=== PATIENT | female | born 1950 | race African-American/Black ===

== ENCOUNTER 2018-02-01 13:58 | Emergency (ER) | payer OTHER ==
[2018-02-01 14:06] VITALS: TEMP 98.2; BMI 34.4
--- NOTE | 2018-02-01 15:17 | PDOC ---
History of Present Illness - General Chief Complaint: Edema Stated Complaint: RT foot SWELLING Time Seen by Provider: 02/01/18 15:07 - History of Present Illness Initial Comments: 02/01/18 17:37 The patient is a 67 year old female with a history of HTN, DM who presents for evaluation of right foot pain. The patient reports a 4 day history of gradually worsening right foot pain worse at the 1st metatarsal joint with associated swelling, redness, and warmth prompting her presentation to the ED for evaluation. She denies similar symptoms in the past and otherwise denies fevers, chills, SOB, chest pain, abdominal pain, nausea, vomiting, or changes with urination or bowel movements or leg swelling. Past History - Past Medical History Allergies/Adverse Reactions: Allergies Allergy/AdvReac Type Severity Reaction Status Date / Time morphine Allergy Unknown Verified 02/01/18 14:06 Morpholine Analogues Allergy Unknown Verified 02/01/18 14:06 Ranmwux-Ezy-Pri Reductase Allergy Verified 02/01/18 14:06 Inhibitor Home Medications: Ambulatory Orders Naproxen [Naprosyn -] 500 mg PO BID #20 tablet 02/01/18 Omeprazole 20 mg PO DAILY #20 tablet. 02/01/18 Cardiac Disorders: Yes (heart surgery) CVA: Yes (5 years ago) COPD: No Diabetes: Yes - Immunization History Immunization Up to Date: Yes - Suicide/Smoking/Psychosocial Hx Smoking History: Never smoked Have you smoked in the past 12 months: No Information on smoking cessation initiated: No Hx Alcohol Use: No Drug/Substance Use Hx: No Substance Use Type: None Review of Systems - Review of Systems Comments:: 02/01/18 17:39 Constitutional: No fevers, chills, fatigue, malaise HEENT: No Rhinorrhea, nasal congestion, visual changes Cardiovascular: No chest pain, syncope, palpitations, lightheadedness Respiratory: No Cough, SOB, Hemoptysis, Gastrointestinal: No Abdominal pain, Nausea, Vomiting, Constipation, Diarrhea, Melena Genitourinary: No Dysuria, Frequency, Urgency, Hesitancy, Hematuria, Flank pain Musculoskeletal: Right Foot Pain. No Myalgia, arthralgia Skin: Erythema, Swelling, Warmth to right foot. No rashes, itching, bruising, pallor Neurologic: No Headache, Dizziness, Numbness, Weakness, or Tingling Psychiatric: No Hallucinations. No SI or HI *Physical Exam - Vital Signs Last Vital Signs Temp Pulse Resp BP Pulse Ox 98.2 F 85 16 153/95 100 02/01/18 14:04 02/01/18 14:04 02/01/18 14:04 02/01/18 14:04 02/01/18 14:04 - Physical Exam Comments: 02/01/18 17:40 General Appearance: Nourished. No Apparent Distress HEENT: EOMI, DANA. No Pharyngeal Erythema, Tonsillar Exudate, Tonsillar Erythema Neck: No Cervical Lymphadenopathy Respiratory/Chest: Lungs Clear, Normal Breath Sounds. No Crackles, Rales, Rhonchi, Wheezing Cardiovascular: Regular Rhythm, Regular Rate. No Murmur, Gallops, Rubs Gastrointestinal/Abdominal: Normal Bowel Sounds, Soft. No Guarding, Rebound, Tenderness Musculoskeletal: No CVA Tenderness Extremity: Erythema, Edema and Warmth to the right 1st metatarsal with severe tenderness to palpation. Normal Capillary Refill Integumentary: Normal Color, Dry, Warm Neurologic: Fully Oriented, Alert, Normal Mood/Affect, Normal Response, ED Treatment Course - LABORATORY CBC & Chemistry Diagram: 02/01/18 16:41 02/01/18 16:41 Medical Decision Making - Medical Decision Making 02/01/18 17:41 The patient is a 67 year old female with a history of HTN, DM who presents for evaluation of right foot pain. Differential includes but is not limited to: Cellulities, Wound infection, Gout Flare, infectious, metabolic derangement. Given the patient's history and physical exam, it is likely her symptoms are due to a gout flare. We will obtain a cbc, cmp, uriac acid, tsh, esr, crp, and plain films to evaluate further. We will treat in the meantime with naproxen and continue to monitor and reassess. 02/01/18 17:55 CBC demonstrates an elevated wbc to 12. CMP is unremarkable. Uric acid is elevated to 7.6. The patient's symptoms are likely due to a gout flare. We are comfortable discharging the patient home at this time with primary care provider and rheumatology follow up. We discussed the results, plan, and return precautions with the patient who voiced understanding and is agreeable with the plan. *DC/Admit/Observation/Transfer Diagnosis at time of Disposition: Gout Qualifiers: Gout site: toe Gout etiology: unspecified cause Chronicity: acute Laterality: right Qualified Code(s): M10.9 - Gout, unspecified - Discharge Dispostion Disposition: HOME Condition at time of disposition: Good Admit: No - Prescriptions Prescriptions: Naproxen [Naprosyn -] 500 mg PO BID #20 tablet Omeprazole 20 mg PO DAILY #20 tablet.dr - Referrals Referrals: Kit Orozco [Primary Care Provider] - Donato Lyn MD [Staff Physician] - - Patient Instructions Printed Discharge Instructions: DI for Gout Additional Instructions: Please return to the ER if you experience concerning or worsening symptoms including worsening pain, pus drainage, fevers, chills, difficulty breathing, or vomiting. Your lab results were otherwise normal, but did show an elevated Uric Acid consistent with gout. Your symptoms are likely due to a gout flare. We have sent a prescription to your pharmacy for Naproxen 500mg twice a day as well as Omeprozole 20mg daily which will help with your symptoms. Please call to schedule a follow up appointment with your primary care provider as well as our broadband technician Dr. Gloria within 2-3 days to discuss your ER visit and further management of your symptoms. - Post Discharge Activity
[2018-02-01] MEDS ORDERED: IBUPROFEN 600 MG TABLET (FP) PO ONE ×2 (15:44→15:59)
[2018-02-01] MEDS ORDERED: PANTOPRAZOLE 20 MG TABLET (FP) PO ONE (16:34)
[2018-02-01] MEDS ORDERED: NAPROXEN 500 MG TABLET (FP) PO ONE (16:34)
[2018-02-01 16:56] LABS: BASO % 0.5 % (0-2.0); EOS % 1.8 % (0-4.5); HEMATOCRIT 38.6 % (32.4-45.2); HEMOGLOBIN 12.5 GM/dL (10.7-15.3); LYMPH % 24.3 % (8-40); MCH 25.3 pg (25.7-33.7); MCHC 32.3 g/dl (32.0-36.0); MEAN CELL VOLUME 78.4 fl (80-96); MEAN PLT VOLUME 7.8 fl (7.5-11.1); MONO % 5.5 % (3.8-10.2); NEUT % 67.9 % (42.8-82.8); PLATELET COUNT 335 K/MM3 (134-434); RBC 4.92 M/mm3 (3.60-5.2); RDW 14.8 % (11.6-15.6)
[2018-02-01 17:22] LABS: URIC ACID 7.6 mg/dL (2.6-7.2)
[2018-02-01 17:23] LABS: ALBUMIN 3.8 g/dl (3.4-5.0); ALK PHOS 81 U/L (45-117); ANION GAP 5 (8-16); BILIRUBIN,TOTAL 0.3 mg/dL (0.2-1.0); BLOOD UREA NITROGEN 17 mg/dL (7-18); CALCIUM 9.1 mg/dL (8.5-10.1); CHLORIDE 107 mmol/L (98-107); CO2 31 mmol/L (21-32); CREATININE 0.9 mg/dL (0.55-1.02); GLUCOSE,RANDOM 102 mg/dL (74-106); POTASSIUM 3.5 mmol/L (3.5-5.1); SGOT/AST 11 U/L (15-37); SGPT/ALT 15 U/L (12-78); SODIUM 143 mmol/L (136-145); TOT PROT 7.2 g/dl (6.4-8.2)
[2018-02-01 18:13] VITALS: BP 148/77; PULSE 80
--- NOTE | 2018-02-01 18:17 | PDOC ---
Attending Attestation - Resident Resident Name: Merritt Coffman - ED Attending Attestation I have performed the following: I have examined & evaluated the patient, The case was reviewed & discussed with the resident, I agree w/resident's findings & plan, Exceptions are as noted - Medical Decision Making 02/01/18 18:00 67yo F hx DM, HTN p/w acute R first metatarsal pain consistent with likely gout. Pt with no fevers/chills. Able to bear weight. Labs with leukocytosis to 12, uric acid mildly elevated. ESR pending but pt feels better with naproxen, requests DC home. XR negative. Pt prescribed naproxen and omeprazole, and referred to rheum. Return precautions given. I discussed the physical exam findings, ancillary test results and final diagnoses with the patient. I answered all of the patient's questions. The patient was satisfied with the care received and felt comfortable with the discharge plan and treatment plan. The patient will call their primary care physician within 24 hours to arrange follow-up and will return to the Emergency Department with any new, persistent or worsening symptoms. <Javier Ochoa - Last Filed: 02/01/18 18:19> - HPI HPI: 02/01/18 18:22 The patient is a 67 year old female with history of hypertension, DM, who presents to the ED complaining of approximately 4 days of right first toe joint pain, swelling, and erythema. She states this has never happened in the past. No history of gout diagnosis. She denies fever or chills. She denies nausea, vomiting, or diarrhea. She denies chest pain or shortness of breath. SHe is able to bear weight on her food. - Physicial Exam PE: 02/01/18 18:22 GENERAL: Awake, alert, and fully oriented, in no acute distress HEAD: No signs of trauma EYES: PERRLA, EOMI, sclera anicteric, conjunctiva clear ENT: Auricles normal inspection, hearing grossly normal, nares patent, oropharynx clear without exudates. Moist mucosa NECK: Normal ROM, supple, no lymphadenopathy, JVD, or masses LUNGS: Breath sounds equal, clear to auscultation bilaterally. No wheezes, and no crackles HEART: Regular rate and rhythm, normal S1 and S2, no murmurs, rubs or gallops ABDOMEN: Soft, nontender, normoactive bowel sounds. No guarding, no rebound. No masses EXTREMITIES: RLE: +Edema, tenderness to the R first metatarsal no significant warmth or erythema. able to range toe. No open wounds. All other extremities: Normal range of motion, no edema. No clubbing or cyanosis. No cords, erythema, or tenderness BACK: No midline spinal tenderness in cervical/thoracic/lumbar region NEUROLOGICAL: Normal speech, cranial nerves intact, negative pronator drift, 5/ 5 strength in all 4 extremities, normal sensation to light touch in all 4 extremities, normal cerebellar exam, normal gait, normal reflexes and tone SKIN: Warm, Dry, normal turgor, no rashes or lesions noted. Documentation prepared by Maribel Barakat, acting as hospital medical biller for Javier Ochoa MD. <Maribel Barakat - Last Filed: 02/01/18 18:23>
== END 2018-02-01 18:10 | disposition home or self-care (01) ==
LOC: JER 13:58
DX: M10.9 Gout, unspecified (principal); I10 Essential (primary) hypertension; E11.9 Type 2 diabetes mellitus without complications
CPT/HCPCS: 36415; 73630-TC-RT-FY; 80053; 84443; 84550; 85025; 85651; 86140; 99282-25

== ENCOUNTER 2018-03-16 18:44 | Emergency (ER) | payer OTHER ==
[2018-03-16] MEDS ORDERED: ASPIRIN 81 MG CHEWABLE TABLETS PO ONE ×2 (18:51→20:22)
--- NOTE | 2018-03-16 18:55 | PDOC ---
Rapid Medical Evaluation Time Seen by Provider: 03/16/18 18:49 Medical Evaluation: Allergies Allergy/AdvReac Type Severity Reaction Status Date / Time morphine Allergy Unknown Verified 02/01/18 14:06 Morpholine Analogues Allergy Unknown Verified 02/01/18 14:06 Addsoia-Itd-Lwi Reductase Allergy Verified 02/01/18 14:06 Inhibitor I have performed a brief in-person evaluation of this patient. The patient presents with a chief complaint of: intermittent chest pain x several months. SOB today. Symptoms worsening. Patient was supposed to have cath 6 months ago but never went Pertinent physical exam findings: SOB, O2 sat at 93% on RA. Faint breath sounds I have ordered the following: labs, EKG, CXR, O2 via NC The patient will proceed to the ED for further evaluation. Discharge Disposition - Diagnosis Chest pain - Referrals - Patient Instructions - Post Discharge Activity
[2018-03-16 18:57] VITALS: BP 185/100; PULSE 95; TEMP 98.6; BMI 34.7
--- NOTE | 2018-03-16 19:29 | PDOC ---
History of Present Illness - History of Present Illness Initial Comments: 03/16/18 19:54 Ms. Lugo is a 67 yo female w/ pmh of HTN, DM, and prior heart stent, previously told approximately 6 months ago that she needs a catheterization, who presents complaining of a 1 month history of dyspnea on exertion with additional 1 week history of left chest pain/tightness. She further reports that she has had to sleep propped up on pillows for the last week. The patient denies headache and dizziness. Denies fever, chills, nausea, vomit, diarrhea and constipation. Denies dysuria, frequency, urgency and hematuria. Allergies: Morphine, statins <Abdirashid Crane - Last Filed: 03/16/18 20:15> <Deborah Parsons - Last Filed: 03/16/18 20:49> - General Chief Complaint: Chest Pain Stated Complaint: CHEST PAIN Time Seen by Provider: 03/16/18 18:49 Past History - Past Medical History Cardiac Disorders: Yes (NM) CVA: Yes (5 years ago) COPD: No DVT: No Diabetes: Yes HTN: Yes Hypercholesterolemia: Yes - Surgical History Cardiac Surgery: Yes (CABG, CARD STENTS) Cholecystectomy: Yes - Immunization History Immunization Up to Date: Yes - Suicide/Smoking/Psychosocial Hx Smoking History: Never smoked Have you smoked in the past 12 months: No Information on smoking cessation initiated: No Hx Alcohol Use: No Drug/Substance Use Hx: No Substance Use Type: None <Abdirashid Crane - Last Filed: 03/16/18 20:15> <Deborah Parsons - Last Filed: 03/16/18 20:49> - Past Medical History Allergies/Adverse Reactions: Allergies Allergy/AdvReac Type Severity Reaction Status Date / Time morphine Allergy Unknown Verified 03/16/18 18:49 Morpholine Analogues Allergy Unknown Verified 03/16/18 18:49 Wjifyup-Hno-Rma Reductase Allergy Verified 03/16/18 18:49 Inhibitor Home Medications: Ambulatory Orders Naproxen [Naprosyn -] 500 mg PO BID #20 tablet 02/01/18 Omeprazole 20 mg PO DAILY #20 tablet. 02/01/18 Review of Systems - Review of Systems Comments:: 03/16/18 19:59 GENERAL/CONSTITUTIONAL: No fever or chills. No weakness. HEAD, EYES, EARS, NOSE AND THROAT: No change in vision. No ear pain or discharge. No sore throat. CARDIOVASCULAR: +Chest pain / dyspnea on exertion as described. RESPIRATORY: No cough, wheezing, or hemoptysis. GASTROINTESTINAL: No nausea, vomiting, diarrhea or constipation. GENITOURINARY: No dysuria, frequency, or change in urination. MUSCULOSKELETAL: No joint or muscle swelling or pain. No neck or back pain. SKIN: No rash NEUROLOGIC: No headache, vertigo, loss of consciousness, or change in strength/ sensation. ENDOCRINE: No increased thirst. No abnormal weight change HEMATOLOGIC/LYMPHATIC: No anemia, easy bleeding, or history of blood clots. ALLERGIC/IMMUNOLOGIC: No hives or skin allergy. <Abdirashid Crane - Last Filed: 03/16/18 20:15> *Physical Exam - Vital Signs Last Vital Signs Temp Pulse Resp BP Pulse Ox 98.6 F 95 H 22 185/100 95 03/16/18 18:49 03/16/18 18:49 03/16/18 18:49 03/16/18 18:49 03/16/18 18:49 - Physical Exam Comments: 03/16/18 19:59 GENERAL: Awake, alert, and fully oriented, in no acute distress HEAD: No signs of trauma, normocephalic, atraumatic EYES: PERRLA, EOMI, sclera anicteric, conjunctiva clear ENT: Auricles normal inspection, hearing grossly normal, nares patent, oropharynx clear without exudates. Moist mucosa NECK: Normal ROM, supple, no lymphadenopathy, JVD, or masses LUNGS: No distress, speaks full sentences, clear to auscultation bilaterally HEART: Regular rate and rhythm, normal S1 and S2, no murmurs, rubs or gallops, peripheral pulses normal and equal bilaterally. ABDOMEN: Soft, nontender, normoactive bowel sounds. No guarding, no rebound. No masses EXTREMITIES: Normal inspection, Normal range of motion, no edema. No clubbing or cyanosis. NEUROLOGICAL: Cranial nerves II through XII grossly intact. Normal speech, normal gait, no focal sensorimotor deficits SKIN: Warm, Dry, normal turgor, no rashes or lesions noted. <Abdirashid Crane - Last Filed: 03/16/18 20:15> - Vital Signs Last Vital Signs Temp Pulse Resp BP Pulse Ox 98.6 F 95 H 22 185/100 95 03/16/18 18:49 03/16/18 18:49 03/16/18 18:49 03/16/18 18:49 03/16/18 18:49 <Deborah Parsons - Last Filed: 03/16/18 20:49> ED Treatment Course - LABORATORY CBC & Chemistry Diagram: 03/16/18 19:15 03/16/18 19:15 <Abdirashid Crane - Last Filed: 03/16/18 20:15> - LABORATORY CBC & Chemistry Diagram: 03/16/18 19:15 03/16/18 19:15 - ADDITIONAL ORDERS Additional order review: Laboratory Results 03/16/18 03/16/18 03/16/18 19:15 19:15 19:15 PT with INR INR Sodium 143 Potassium 4.8 Chloride 106 Carbon Dioxide 26 Anion Gap 11 BUN 14 Creatinine 1.0 Creat Clearance w eGFR 54.97 Random Glucose 101 Calcium 9.0 Magnesium 2.1 Total Bilirubin 0.3 AST 41 H ALT 33 Alkaline Phosphatase 91 Creatine Kinase 176 Creatine Kinase Index 2.0 CK-MB (CK-2) 3.601 H Troponin I 25.10 H* B-Natriuretic Peptide 3354.50 H Total Protein 7.7 Albumin 3.8 Blood Type B POSITIVE Antibody Screen Negative 03/16/18 19:15 PT with INR 12.10 INR 1.07 Sodium Potassium Chloride Carbon Dioxide Anion Gap BUN Creatinine Creat Clearance w eGFR Random Glucose Calcium Magnesium Total Bilirubin AST ALT Alkaline Phosphatase Creatine Kinase Creatine Kinase Index CK-MB (CK-2) Troponin I B-Natriuretic Peptide Total Protein Albumin Blood Type Antibody Screen 03/16/18 19:15 RBC 5.03 MCV 78.9 L MCHC 31.8 L RDW 14.8 MPV 8.5 Neutrophils % 56.8 Lymphocytes % 31.3 D Monocytes % 7.8 Eosinophils % 3.2 Basophils % 0.9 - Medications Given in the ED: ED Medications Discontinued Medications Generic Name Dose Route Start Last Admin Trade Name Freq PRN Reason Stop Dose Admin Aspirin 162 mg 03/16/18 18:51 03/16/18 20:06 Asa - PO 03/16/18 18:52 162 mg ONCE ONE Administration <Deborah Parsons - Last Filed: 03/16/18 20:49> Medical Decision Making - Medical Decision Making 03/16/18 20:15 Ms. Lugo is a 67 yo female w/ pmh as described who presents for evaluation of worsening dyspnea on exertion and left sided chest pain. Troponin noted to be elevated to 25.10. Cardiology consulted who believe patient should be transferred to cath capable facility. [facility] contacted. <Abdirashid Crane - Last Filed: 03/16/18 20:15> - Critical Care Time Total Critical Care Time (minutes): 45 Critical Care Statement: The care of this patient involved high complexity decision making to prevent further life threatening deterioration of the patient 's condition and/or to evaluate & treat vital organ system(s) failure or risk of failure. <Deborah Parsons - Last Filed: 03/16/18 20:49> *DC/Admit/Observation/Transfer <Abdirashid Crane - Last Filed: 03/16/18 20:15> <Deborah Parsons - Last Filed: 03/16/18 20:49> Diagnosis at time of Disposition: Chest pain - Referrals Referrals: Kit Orozco [Primary Care Provider] - - Patient Instructions - Post Discharge Activity
[2018-03-16 19:34] LABS: BASO % 0.9 % (0-2.0); EOS % 3.2 % (0-4.5); HEMATOCRIT 39.7 % (32.4-45.2); HEMOGLOBIN 12.6 GM/dL (10.7-15.3); LYMPH % 31.3 % (8-40); MCH 25.1 pg (25.7-33.7); MCHC 31.8 g/dl (32.0-36.0); MEAN CELL VOLUME 78.9 fl (80-96); MEAN PLT VOLUME 8.5 fl (7.5-11.1); MONO % 7.8 % (3.8-10.2); NEUT % 56.8 % (42.8-82.8); PLATELET COUNT 324 K/MM3 (134-434); RBC 5.03 M/mm3 (3.60-5.2); RDW 14.8 % (11.6-15.6)
--- NOTE | 2018-03-16 19:37 | PDOC ---
Attending Attestation - HPI HPI: 03/16/18 19:40 The patient is a 67 year old female, with a significant PMH of diabetes mellitus , hypertension, CVA, who presents to the emergency department with intermittent chest pain and shortness of breath. The patient states she has had intermittent chest pain for the past couple of months which has worsened in the past few days with associated shortness of breath. The patient also endorses nausea without vomiting and dyspnea on exertion. The patient reports she was supposed to have a cardiac catheter placed 6 months ago but did not go for the procedure. The patient states she took 81 mg of aspirin earlier today which she takes everyday. The patient denies diaphoresis, headache and dizziness. Denies fever, chills, vomit, diarrhea and constipation. Denies dysuria, frequency, urgency and hematuria. Allergies: morphine, morpholine analogues, [id number] reductase Inhibitor PCP: Dr. Kit Orozco Documentation prepared by Junito Islas, acting as medical device for Deborah Parsons MD. <Junito Islas - Last Filed: 03/16/18 19:40> - Resident Resident Name: Abdirashid Crane - ED Attending Attestation I have performed the following: I have examined & evaluated the patient, The case was reviewed & discussed with the resident, I agree w/resident's findings & plan, Exceptions are as noted - Physicial Exam PE: GENERAL: Awake, alert, and fully oriented, in no acute distress HEAD: No signs of trauma EYES: PERRLA, EOMI, sclera anicteric, conjunctiva clear ENT: Auricles normal inspection, hearing grossly normal, nares patent, oropharynx clear without exudates. Moist mucosa NECK: Normal ROM, supple, no lymphadenopathy, JVD, or masses LUNGS: Breath sounds equal, clear to auscultation bilaterally. No wheezes, and no crackles HEART: Regular rate and rhythm, normal S1 and S2, no murmurs, rubs or gallops ABDOMEN: Soft, nontender, normoactive bowel sounds. No guarding, no rebound. No masses EXTREMITIES: Normal range of motion, no edema. No clubbing or cyanosis. No cords, erythema, or tenderness NEUROLOGICAL: Cranial nerves II through XII grossly intact. Normal speech, normal gait. Motor and sensation intact. SKIN: Warm, Dry, normal turgor, no rashes or lesions noted. - Medical Decision Making 03/16/18 19:36 Pt evaluated in main ED immediately after triage EKG was brought to me. Patient with history of CAD, needed a cath 6 months ago but did not follow up to get it. She presents with cp, SOB. EKG findings are concerning for acute [place]. Awaiting cardio callback. 03/16/18 20:22 D/w [facility] cardiology, recommended heparin bolus, plavix. Accepted transfer. <Deborah Parsons - Last Filed: 03/16/18 20:22> Heart Score/ECG Review - ECG Impressions Comment:: EKG read 18:53- NSR 91 bpm, +ST depressions lateral and inferior leads, +ST elevations aVR and V1 <Deborah Parsons - Last Filed: 03/16/18 20:22>
[2018-03-16 19:45] LABS: INR 1.07 (0.82-1.09); PROTHROMBIN TIME (PATIENT) 12.1 SEC (9.7-13.0)
[2018-03-16 19:59] LABS: ALBUMIN 3.8 g/dl (3.4-5.0); ANION GAP 11 (8-16); BILIRUBIN,TOTAL 0.3 mg/dL (0.2-1.0); BLOOD UREA NITROGEN 14 mg/dL (7-18); CHLORIDE 106 mmol/L (98-107); CO2 26 mmol/L (21-32); GLUCOSE,RANDOM 101 mg/dL (74-106); SGPT/ALT 33 U/L (12-78); SODIUM 143 mmol/L (136-145); TOT PROT 7.7 g/dl (6.4-8.2)
[2018-03-16 20:02] LABS: ALK PHOS 91 U/L (45-117)
[2018-03-16 20:10] LABS: MAGNESIUM 2.1 mg/dL (1.8-2.4); POTASSIUM 4.8 mmol/L (3.5-5.1); SGOT/AST 41 U/L (15-37)
[2018-03-16] MEDS ORDERED: ASPIRIN 81 MG CHEWABLE TABLETS ONE ×2 (20:10→20:43)
[2018-03-16] MEDS ORDERED: CLOPIDOGREL BISULFATE 300 MG TABLET PO ONE (20:22)
[2018-03-16] MEDS ORDERED: HEPARIN NA (PORCINE) 5,000 UNITS/ML 1ML VIAL IVPUSH PRN (20:22)
[2018-03-16] MEDS ORDERED: CLOPIDOGREL BISULFATE 300 MG TABLET ONE (20:44)
[2018-03-16] MEDS ORDERED: HEPARIN NA (PORCINE) 5,000 UNITS/ML 1ML VIAL ONE (20:44)
--- NOTE | 2018-03-17 10:13 | EKG ---
Test Reason : Blood Pressure : / mmHG Vent. Rate : 091 BPM Atrial Rate : 091 BPM P-R Int : 174 ms QRS Dur : 082 ms QT Int : 380 ms P-R-T Axes : 052 -24 176 degrees QTc Int : 467 ms NORMAL SINUS RHYTHM POSSIBLE ANTERIOR INFARCT , AGE UNDETERMINED MARKED ST ABNORMALITY, POSSIBLE LATERAL SUBENDOCARDIAL INJURY ABNORMAL ECG Confirmed by JAYCEE CEDENO MD ([id number]) on 03/17/2018 10:13:49 AM Referred By: Confirmed By:JAYCEE CEDENO MD
== END 2018-03-16 21:09 | disposition short-term general hospital (02) ==
LOC: JER 18:44
PROC: 3E033GC Introduction of Other Therapeutic Substance into Peripheral Vein, Percutaneous Approach (ICD-10-PCS; principal; 2018-03-16)
DX: R07.9 Chest pain, unspecified (principal); E11.9 Type 2 diabetes mellitus without complications; Z86.73 Personal history of transient ischemic attack (TIA), and cerebral infarction without residual deficits; I25.2 Old myocardial infarction; E78.00 Pure hypercholesterolemia, unspecified; Z95.1 Presence of aortocoronary bypass graft; Z95.5 Presence of coronary angioplasty implant and graft
CPT/HCPCS: 36415; 80053; 82550; 82553; 83735; 83880; 84484; 85025; 85610; 86850; 86900; 86901; 93005; 93010; 99283-25; J1644

== ENCOUNTER 2020-12-22 10:45 | Inpatient (IN) | payer OTHER ==
[2020-12-22] MEDS ORDERED: ALBUTEROL SO4 2.5/IPRATROPIUM 0.5 INH SOL 3 ML VIAL.NEB. NEB ONE ×2 (11:11→13:10)
[2020-12-22 12:03] LABS: VENOUS BASE EXCESS -7.1 mmol/L (-2-2); VENOUS O2 SATURATION 89.7 % (70-80); VENOUS PCO2 43.4 mmHg (38-52); VENOUS PH 7.27 (7.310-7.410)
[2020-12-22 12:07] LABS: BASO % 0.5 % (0-2.0); EOS % 1.1 % (0-4.5); HEMATOCRIT 35.3 % (32.4-45.2); HEMOGLOBIN 11.2 GM/dL (10.7-15.3); LYMPH % 14.8 % (8-40); MCH 25.3 pg (25.7-33.7); MCHC 31.6 g/dl (32.0-36.0); MEAN CELL VOLUME 80.1 fl (80-96); MONO % 8.1 % (3.8-10.2); NEUT % 75.5 % (42.8-82.8); PLATELET COUNT 311 K/MM3 (134-434); RDW 17.4 % (11.6-15.6); WHITE BLOOD COUNT 10.9 K/mm3 (4.0-10.0)
[2020-12-22 12:12] LABS: INR 1.65 (0.83-1.09); PROTHROMBIN TIME (PATIENT) 19.7 SEC (9.7-13.0)
[2020-12-22 12:14] LABS: ACTIVATED PTT 33.7 SECONDS (25.2-36.5); URINE APPEARANCE Clear; URINE BILIRUBIN 1+ (NEGATIVE); URINE COLOR Yellow; URINE GLUCOSE (UA) Negative (NEGATIVE); URINE KETONE Negative (NEGATIVE); URINE LEUK ESTERASE Negative (NEGATIVE); URINE NITRITE Negative (NEGATIVE); URINE PROTEIN 3+ (NEGATIVE); URINE UROBILINOGEN 0.2 mg/dL (0.2-1.0)
[2020-12-22 12:24] LABS: POTASSIUM 3.8 mmol/L (3.5-5.1)
[2020-12-22 12:26] LABS: ALBUMIN 3.4 g/dl (3.4-5.0); BLOOD UREA NITROGEN 11.3 mg/dL (7-18); MAGNESIUM 1.7 mg/dL (1.8-2.4)
[2020-12-22 12:29] LABS: CREATININE 0.9 mg/dL (0.55-1.3); PHOSPHOROUS 4.3 mg/dL (2.5-4.9)
[2020-12-22 12:31] LABS: BILIRUBIN,TOTAL 0.5 mg/dL (0.2-1); TOT PROT 6.8 g/dl (6.4-8.2)
[2020-12-22 12:35] LABS: N-TERMINAL BNP 17756.2 pg/ml (5-125)
[2020-12-22 12:36] LABS: URINE RBC 11.3 /uL (0-23.9); URINE WBC 39.3 /uL (0-25.8)
[2020-12-22 12:37] LABS: CALCIUM 9.1 mg/dL (8.5-10.1); EPI CELLS 79.8 /uL (0-25.1); HYALINE CASTS 6.93 /uL (0-3.1); URINE BACTERIA 768.5 /uL (0-1359)
[2020-12-22] MEDS ORDERED: FUROSEMIDE 40 MG/4 ML INJECTABLE VIAL IVPUSH ONE (17:05)
[2020-12-22] MEDS ORDERED: FUROSEMIDE 40 MG/4 ML INJECTABLE VIAL ONE (17:16)
[2020-12-22] MEDS ORDERED: ASPIRIN 81 MG CHEWABLE TABLETS ONE (18:48)
[2020-12-22] MEDS: ASPIRIN 81 MG CHEWABLE TABLETS PO SCH (18:50)
[2020-12-22] MEDS: INSULIN SLIDING SCALE (NOVOLOG) 1 VIAL SQ SCH (21:53)
[2020-12-23] MEDS ORDERED: ALBUTEROL SO4 2.5/IPRATROPIUM 0.5 INH SOL 3 ML VIAL.NEB. NEB ONE (02:15)
[2020-12-23 02:21] VITALS: BMI 35.7
[2020-12-23] MEDS: INSULIN SLIDING SCALE (NOVOLOG) 1 VIAL SQ SCH ×4 (06:30→21:04)
[2020-12-23 07:30] LABS: BASO % 0.7 % (0-2.0); EOS % 1.9 % (0-4.5); HEMATOCRIT 33.5 % (32.4-45.2); HEMOGLOBIN 10.6 GM/dL (10.7-15.3); MCH 25.2 pg (25.7-33.7); MCHC 31.6 g/dl (32.0-36.0); MONO % 10.8 % (3.8-10.2); NEUT % 66.6 % (42.8-82.8); PLATELET COUNT 250 K/MM3 (134-434); RBC 4.19 M/mm3 (3.60-5.2); RDW 17.2 % (11.6-15.6)
[2020-12-23 07:56] LABS: POTASSIUM 3.3 mmol/L (3.5-5.1)
[2020-12-23 08:01] LABS: CALCIUM 8.6 mg/dL (8.5-10.1)
[2020-12-23 08:02] LABS: BLOOD UREA NITROGEN 10.8 mg/dL (7-18); MAGNESIUM 1.8 mg/dL (1.8-2.4)
[2020-12-23 08:04] LABS: CREATININE 0.9 mg/dL (0.55-1.3)
[2020-12-23 08:05] LABS: PHOSPHOROUS 5.1 mg/dL (2.5-4.9)
[2020-12-23 08:06] LABS: BILIRUBIN,TOTAL 0.5 mg/dL (0.2-1); TOT PROT 5.9 g/dl (6.4-8.2)
[2020-12-23] MEDS ORDERED: ENOXAPARIN NA (PORCINE) 40 MG/0.4 ML DISP.SYRIN SQ SCH (10:00)
[2020-12-23] MEDS: PANTOPRAZOLE 20 MG TABLET PO SCH (10:07)
[2020-12-23] MEDS: FUROSEMIDE 40 MG/4 ML INJECTABLE VIAL IVPUSH SCH (10:07)
[2020-12-23] MEDS: ASPIRIN 81 MG CHEWABLE TABLETS PO SCH (10:09)
[2020-12-23] MEDS ORDERED: POTASSIUM CHLORIDE TABS 20 MEQ TABLET.ER (FP) PO ONE (10:21)
[2020-12-23] MEDS ORDERED: PT OWN MED DRAWER 7, Y5N ONE (12:01)
[2020-12-23] MEDS ORDERED: ALBUTEROL SO4 HFA INHALER IH PRN (19:51)
[2020-12-24] MEDS: ALBUTEROL SO4 0.083% IH SOL 2.5 MG/3 ML VIAL.NEB. NEB PRN ×2 (02:12→23:07)
[2020-12-24] MEDS ORDERED: ACETAMINOPHEN 325 MG TABLET (FP) PO PRN (02:27)
[2020-12-24] MEDS ORDERED: FUROSEMIDE 40 MG/4 ML INJECTABLE VIAL IVPUSH ONE (03:05)
[2020-12-24] MEDS ORDERED: FUROSEMIDE 40 MG/4 ML INJECTABLE VIAL ONE (03:10)
[2020-12-24] MEDS: INSULIN SLIDING SCALE (NOVOLOG) 1 VIAL SQ SCH ×4 (06:34→21:21)
[2020-12-24] MEDS: SACUBITRIL/VALSARTAN 24 MG-26 MG TABLET PO SCH ×2 (06:34→21:17)
[2020-12-24 08:13] LABS: BASO % 0.7 % (0-2.0); EOS % 2.9 % (0-4.5); HEMATOCRIT 33.9 % (32.4-45.2); HEMOGLOBIN 10.9 GM/dL (10.7-15.3); LYMPH % 13.4 % (8-40); MCH 25.4 pg (25.7-33.7); MCHC 32.1 g/dl (32.0-36.0); MEAN CELL VOLUME 79.3 fl (80-96); MEAN PLT VOLUME 8.7 fl (7.5-11.1); MONO % 9.1 % (3.8-10.2); NEUT % 73.9 % (42.8-82.8); PLATELET COUNT 288 K/MM3 (134-434); RBC 4.28 M/mm3 (3.60-5.2); RDW 16.9 % (11.6-15.6); WHITE BLOOD COUNT 10.2 K/mm3 (4.0-10.0)
[2020-12-24 08:48] LABS: POTASSIUM 3.2 mmol/L (3.5-5.1)
[2020-12-24 08:51] LABS: CALCIUM 8.7 mg/dL (8.5-10.1)
[2020-12-24 08:52] LABS: BLOOD UREA NITROGEN 9.5 mg/dL (7-18)
[2020-12-24 08:54] LABS: CREATININE 0.9 mg/dL (0.55-1.3)
[2020-12-24] MEDS: FUROSEMIDE 40 MG/4 ML INJECTABLE VIAL IVPUSH SCH (10:06)
[2020-12-24] MEDS: CARVEDILOL 12.5 MG TABLET (FP) PO SCH ×2 (10:07→21:17)
[2020-12-24] MEDS: ASPIRIN 81 MG CHEWABLE TABLETS PO SCH (10:07)
[2020-12-24] MEDS: PANTOPRAZOLE 40 MG TABLET PO SCH (10:07)
[2020-12-24] MEDS: PANTOPRAZOLE 20 MG TABLET PO SCH (10:07)
[2020-12-24] MEDS: APIXABAN 5 MG TABLET PO SCH ×2 (10:07→21:17)
[2020-12-24] MEDS: CLOPIDOGREL BISULFATE 75 MG TABLET (FP) PO SCH (10:07)
[2020-12-24] MEDS: POTASSIUM CHLORIDE TABS 20 MEQ TABLET.ER (FP) PO SCH (11:27)
[2020-12-25] MEDS: INSULIN SLIDING SCALE (NOVOLOG) 1 VIAL SQ SCH ×4 (06:18→21:23)
[2020-12-25 08:24] LABS: CALCIUM 8.4 mg/dL (8.5-10.1); POTASSIUM 3.4 mmol/L (3.5-5.1)
[2020-12-25 08:26] LABS: BLOOD UREA NITROGEN 10.2 mg/dL (7-18)
[2020-12-25 08:28] LABS: CREATININE 0.8 mg/dL (0.55-1.3)
[2020-12-25] MEDS ORDERED: POTASSIUM CHLORIDE TABS 20 MEQ TABLET.ER (FP) PO ONE (09:24)
[2020-12-25] MEDS: FUROSEMIDE 40 MG/4 ML INJECTABLE VIAL IVPUSH SCH (10:26)
[2020-12-25] MEDS: PANTOPRAZOLE 40 MG TABLET PO SCH (10:29)
[2020-12-25] MEDS: CARVEDILOL 12.5 MG TABLET (FP) PO SCH ×2 (10:29→21:23)
[2020-12-25] MEDS: APIXABAN 5 MG TABLET PO SCH ×2 (10:29→21:23)
[2020-12-25] MEDS: ASPIRIN 81 MG CHEWABLE TABLETS PO SCH (10:29)
[2020-12-25] MEDS: SACUBITRIL/VALSARTAN 24 MG-26 MG TABLET PO SCH ×2 (10:30→21:23)
[2020-12-25] MEDS: CLOPIDOGREL BISULFATE 75 MG TABLET (FP) PO SCH (10:30)
[2020-12-25 13:00] LABS: MAGNESIUM 1.6 mg/dL (1.8-2.4)
[2020-12-25] MEDS: POTASSIUM CHLORIDE TABS 20 MEQ TABLET.ER (FP) PO SCH (15:01)
[2020-12-25] MEDS ORDERED: MAGNESIUM SULF 50% (8.12 MEQ/2 ML-1 GM VIAL) IVPB ONE (18:04)
[2020-12-26] MEDS: ALBUTEROL SO4 0.083% IH SOL 2.5 MG/3 ML VIAL.NEB. NEB PRN (01:45)
[2020-12-26] MEDS: INSULIN SLIDING SCALE (NOVOLOG) 1 VIAL SQ SCH ×3 (06:09→16:37)
[2020-12-26 07:59] LABS: POTASSIUM 3.6 mmol/L (3.5-5.1)
[2020-12-26 08:03] LABS: BLOOD UREA NITROGEN 10.1 mg/dL (7-18)
[2020-12-26 08:04] LABS: CALCIUM 8.3 mg/dL (8.5-10.1)
[2020-12-26 08:07] LABS: CREATININE 0.9 mg/dL (0.55-1.3)
[2020-12-26] MEDS ORDERED: FUROSEMIDE 40 MG TABLET (FP) PO SCH (10:00)
[2020-12-26] MEDS ORDERED: REGADENOSON 0.4 MG/5 ML PRE-FILLED SYRINGE IVPUSH ONE (10:00)
[2020-12-26] MEDS ORDERED: MAGNESIUM OXIDE 400 MG TABLET (FP) PO SCH (10:00)
[2020-12-26] MEDS: CARVEDILOL 12.5 MG TABLET (FP) PO SCH (10:14)
[2020-12-26] MEDS: ASPIRIN 81 MG CHEWABLE TABLETS PO SCH (10:14)
[2020-12-26] MEDS: SACUBITRIL/VALSARTAN 24 MG-26 MG TABLET PO SCH (10:14)
[2020-12-26] MEDS: CLOPIDOGREL BISULFATE 75 MG TABLET (FP) PO SCH (10:14)
[2020-12-26] MEDS: PANTOPRAZOLE 40 MG TABLET PO SCH (10:15)
[2020-12-26] MEDS: POTASSIUM CHLORIDE TABS 20 MEQ TABLET.ER (FP) PO SCH (10:15)
[2020-12-26] MEDS: APIXABAN 5 MG TABLET PO SCH (10:15)
[2020-12-26 10:19] LABS: MAGNESIUM 2.1 mg/dL (1.8-2.4)
[2020-12-26 18:21] VITALS: BP 125/65; PULSE 80; TEMP 97.8
== END 2020-12-26 18:05 | disposition home or self-care (01) | DRG 292 ==
LOC: JER 10:45 → JERBED 17:13 → J4S 23:54
PROVIDERS: ADMIT Internal Medicine; ATTEND Family Medicine
DX: I11.0 Hypertensive heart disease with heart failure (principal); I69.354 Hemiplegia and hemiparesis following cerebral infarction affecting left non-dominant side; I25.10 Atherosclerotic heart disease of native coronary artery without angina pectoris; I50.23 Acute on chronic systolic (congestive) heart failure; J44.9 Chronic obstructive pulmonary disease, unspecified; E11.9 Type 2 diabetes mellitus without complications; I34.0 Nonrheumatic mitral (valve) insufficiency; E05.90 Thyrotoxicosis, unspecified without thyrotoxic crisis or storm; E66.9 Obesity, unspecified; Z68.35 Body mass index [BMI] 35.0-35.9, adult; E78.5 Hyperlipidemia, unspecified; E87.6 Hypokalemia; Z95.1 Presence of aortocoronary bypass graft; Z95.5 Presence of coronary angioplasty implant and graft
CPT/HCPCS: 36415; 71045-TC-FY; 71275-TC; 80048; 80053; 80061; 81003; 82550; 82607; 82728; 82803; 82962; 83036; 83540; 83550; 83605; 83721; 83735; 83880; 84100; 84443; 84484; 85025; 85610; 85730; 87086; 93005; 93010; 93306-TC; 93971-TC; 94640; 94761; 97116-GP; 97161-GP; 99285-25; C9803; Q9967; U0003

== ENCOUNTER 2021-04-07 10:09 | Inpatient (IN) | payer OTHER ==
[2021-04-07] MEDS ORDERED: FUROSEMIDE 40 MG/4 ML INJECTABLE VIAL IVPUSH ONE (11:49)
[2021-04-07 12:33] LABS: BASO % 0.5 % (0-2.0); EOS % 1.3 % (0-4.5); HEMATOCRIT 24.2 % (32.4-45.2); HEMOGLOBIN 7.4 GM/dL (10.7-15.3); LYMPH % 18.8 % (8-40); MCH 20.6 pg (25.7-33.7); MCHC 30.4 g/dl (32.0-36.0); MEAN CELL VOLUME 67.6 fl (80-96); MEAN PLT VOLUME 8.5 fl (7.5-11.1); MONO % 10.2 % (3.8-10.2); NEUT % 69.2 % (42.8-82.8); PLATELET COUNT 229 10^3/uL (134-434); RBC 3.58 M/mm3 (3.60-5.2); RDW 18.5 % (11.6-15.6); WHITE BLOOD COUNT 7.3 K/mm3 (4.0-10.0)
[2021-04-07 12:36] LABS: INR 3.31 (0.83-1.09); PROTHROMBIN TIME (PATIENT) 38.7 SEC (9.7-13.0)
[2021-04-07 12:38] LABS: ACTIVATED PTT 33.8 SECONDS (25.2-36.5)
[2021-04-07] MEDS ORDERED: FUROSEMIDE 40 MG/4 ML INJECTABLE VIAL ONE (12:48)
[2021-04-07 12:50] LABS: CALCIUM 8.3 mg/dL (8.5-10.1)
[2021-04-07 12:51] LABS: ALBUMIN 2.8 g/dl (3.4-5.0)
[2021-04-07 12:54] LABS: CREATININE 0.9 mg/dL (0.55-1.3)
[2021-04-07 12:55] LABS: BILIRUBIN,TOTAL 0.6 mg/dL (0.2-1)
[2021-04-07 12:56] LABS: TOT PROT 5.5 g/dl (6.4-8.2)
[2021-04-07 12:59] LABS: N-TERMINAL BNP 7548.3 pg/ml (5-125)
[2021-04-07 13:15] LABS: ANISOCYTOSIS 1+; MACROCYTOSIS 0; PLATELET ESTIMATE NORMAL
[2021-04-07] MEDS ORDERED: KCL 10 MEQ IVPB 10 MEQ/100 ML INFUS.BAG IVPB SCH (15:15)
[2021-04-07 16:00] LABS: BLOOD UREA NITROGEN 12.3 mg/dL (7-18); CALCIUM 8.3 mg/dL (8.5-10.1)
[2021-04-07 16:01] LABS: MAGNESIUM 1.9 mg/dL (1.8-2.4)
[2021-04-07 16:04] LABS: CREATININE 0.9 mg/dL (0.55-1.3)
[2021-04-07] MEDS ORDERED: CHLORHEXIDINE GLUCONATE 4% CLEANSER FOR DECOLONIZATION TP SCH (22:00)
[2021-04-07] MEDS ORDERED: MUPIROCIN 2% TOPICAL OINTMENT FOR DECOLONIZATION NS SCH (22:00)
[2021-04-07] MEDS: KCL 10 MEQ IVPB 10 MEQ/100 ML INFUS.BAG IVPB SCH ×2 (22:03→23:10)
[2021-04-07] MEDS: CARVEDILOL 12.5 MG TABLET (FP) PO SCH (22:24)
[2021-04-07] MEDS: SACUBITRIL/VALSARTAN 24 MG-26 MG TABLET PO SCH (22:31)
[2021-04-07] MEDS: PANTOPRAZOLE SODIUM 80 MG in SODIUM CHLORIDE 100 ML IVPB SCH (23:05)
[2021-04-08] MEDS: PANTOPRAZOLE SODIUM 80 MG in SODIUM CHLORIDE 100 ML IVPB SCH ×3 (01:58→21:42)
[2021-04-08 08:25] LABS: BASO % 0.4 % (0-2.0); EOS % 1.4 % (0-4.5); HEMATOCRIT 28.1 % (32.4-45.2); HEMOGLOBIN 8.6 GM/dL (10.7-15.3); LYMPH % 14.5 % (8-40); MCH 21.3 pg (25.7-33.7); MCHC 30.5 g/dl (32.0-36.0); MEAN CELL VOLUME 69.7 fl (80-96); MEAN PLT VOLUME 8.6 fl (7.5-11.1); MONO % 10.3 % (3.8-10.2); NEUT % 73.4 % (42.8-82.8); PLATELET COUNT 223 10^3/uL (134-434); RBC 4.03 M/mm3 (3.60-5.2); RDW 18.3 % (11.6-15.6); WHITE BLOOD COUNT 8.3 K/mm3 (4.0-10.0)
[2021-04-08 08:32] LABS: INR 2.15 (0.83-1.09); PROTHROMBIN TIME (PATIENT) 25.9 SEC (9.7-13.0)
[2021-04-08 08:53] LABS: ALBUMIN 2.9 g/dl (3.4-5.0); BLOOD UREA NITROGEN 13.1 mg/dL (7-18)
[2021-04-08 08:55] LABS: CREATININE 0.9 mg/dL (0.55-1.3)
[2021-04-08 08:56] LABS: BILIRUBIN,TOTAL 0.8 mg/dL (0.2-1); TOT PROT 5.6 g/dl (6.4-8.2)
[2021-04-08] MEDS: CARVEDILOL 12.5 MG TABLET (FP) PO SCH ×2 (10:37→21:42)
[2021-04-08] MEDS: SACUBITRIL/VALSARTAN 24 MG-26 MG TABLET PO SCH ×2 (10:37→21:42)
[2021-04-08] MEDS ORDERED: PT OWN MED DRAWER 7, Y5N ONE (11:49)
[2021-04-08] MEDS ORDERED: FUROSEMIDE 40 MG/4 ML INJECTABLE VIAL IVPUSH ONE (14:34)
[2021-04-08] MEDS ORDERED: IRON SUCROSE INJECTION 200 MG in SODIUM CHLORIDE 90 ML IVPB ONE (15:32)
[2021-04-08 17:28] LABS: BASO % 0.3 % (0-2.0); EOS % 1.5 % (0-4.5); HEMATOCRIT 30.3 % (32.4-45.2); HEMOGLOBIN 9.2 GM/dL (10.7-15.3); MCH 21.3 pg (25.7-33.7); MCHC 30.4 g/dl (32.0-36.0); MEAN CELL VOLUME 70.1 fl (80-96); MONO % 10.1 % (3.8-10.2); NEUT % 74.1 % (42.8-82.8); PLATELET COUNT 226 10^3/uL (134-434); RBC 4.33 M/mm3 (3.60-5.2); RDW 18.1 % (11.6-15.6); WHITE BLOOD COUNT 8.9 K/mm3 (4.0-10.0)
[2021-04-08 17:50] LABS: BLOOD UREA NITROGEN 12.1 mg/dL (7-18); CALCIUM 8.2 mg/dL (8.5-10.1)
[2021-04-08 17:54] LABS: CREATININE 0.9 mg/dL (0.55-1.3)
[2021-04-08] MEDS ORDERED: POTASSIUM CHLORIDE TABS 20 MEQ TABLET.ER (FP) PO ONE (19:09)
[2021-04-08] MEDS: SPIRONOLACTONE 25 MG TABLET PO SCH (21:42)
[2021-04-09 07:27] LABS: BASO % 0.3 % (0-2.0); EOS % 1.2 % (0-4.5); HEMATOCRIT 26.5 % (32.4-45.2); HEMOGLOBIN 8.1 GM/dL (10.7-15.3); LYMPH % 11.5 % (8-40); MCH 21.4 pg (25.7-33.7); MCHC 30.7 g/dl (32.0-36.0); MEAN CELL VOLUME 69.7 fl (80-96); MEAN PLT VOLUME 8.8 fl (7.5-11.1); MONO % 9.2 % (3.8-10.2); NEUT % 77.8 % (42.8-82.8); PLATELET COUNT 204 10^3/uL (134-434); RBC 3.79 M/mm3 (3.60-5.2); RDW 18.6 % (11.6-15.6); WHITE BLOOD COUNT 8.8 K/mm3 (4.0-10.0)
[2021-04-09 07:40] LABS: CALCIUM 8.2 mg/dL (8.5-10.1)
[2021-04-09 07:41] LABS: BLOOD UREA NITROGEN 12.4 mg/dL (7-18); MAGNESIUM 1.9 mg/dL (1.8-2.4)
[2021-04-09 07:44] LABS: CREATININE 0.9 mg/dL (0.55-1.3); PHOSPHOROUS 4.1 mg/dL (2.5-4.9)
[2021-04-09] MEDS: PANTOPRAZOLE SODIUM 80 MG in SODIUM CHLORIDE 100 ML IVPB SCH ×2 (10:42→22:43)
[2021-04-09] MEDS: SACUBITRIL/VALSARTAN 24 MG-26 MG TABLET PO SCH ×2 (10:43→22:43)
[2021-04-09] MEDS: CARVEDILOL 12.5 MG TABLET (FP) PO SCH ×2 (10:43→22:43)
[2021-04-09] MEDS: SPIRONOLACTONE 25 MG TABLET PO SCH (10:43)
[2021-04-09 19:06] LABS: GLIADIN ANTIBODY IGA 2 units (0-19); GLIADIN ANTIBODY IGG 1 units (0-19); TRANSGLUTAMINASE IGG 3 U/mL (0-5)
[2021-04-10 07:39] LABS: BASO % 0.5 % (0-2.0); EOS % 1.1 % (0-4.5); HEMATOCRIT 26.4 % (32.4-45.2); HEMOGLOBIN 7.8 GM/dL (10.7-15.3); LYMPH % 12.4 % (8-40); MCH 21.2 pg (25.7-33.7); MCHC 29.6 g/dl (32.0-36.0); MEAN CELL VOLUME 71.4 fl (80-96); MEAN PLT VOLUME 8.9 fl (7.5-11.1); MONO % 10.2 % (3.8-10.2); NEUT % 75.8 % (42.8-82.8); PLATELET COUNT 212 10^3/uL (134-434); RDW 18.5 % (11.6-15.6); WHITE BLOOD COUNT 8.8 K/mm3 (4.0-10.0)
[2021-04-10 07:43] LABS: BLOOD UREA NITROGEN 11.2 mg/dL (7-18); CALCIUM 8.1 mg/dL (8.5-10.1)
[2021-04-10 07:47] LABS: CREATININE 0.9 mg/dL (0.55-1.3)
[2021-04-10] MEDS ORDERED: FUROSEMIDE 40 MG/4 ML INJECTABLE VIAL IVPUSH SCH (08:19)
[2021-04-10] MEDS ORDERED: PT OWN MED DRAWER 7, Y5N ONE ×2 (08:46→21:34)
[2021-04-10] MEDS: SPIRONOLACTONE 25 MG TABLET PO SCH (09:57)
[2021-04-10] MEDS: CARVEDILOL 12.5 MG TABLET (FP) PO SCH ×2 (09:57→21:41)
[2021-04-10] MEDS: PANTOPRAZOLE SODIUM 80 MG in SODIUM CHLORIDE 100 ML IVPB SCH ×2 (09:57→13:22)
[2021-04-10] MEDS: SACUBITRIL/VALSARTAN 24 MG-26 MG TABLET PO SCH ×2 (09:57→21:41)
[2021-04-10 16:35] LABS: INR 1.51 (0.83-1.09); PROTHROMBIN TIME (PATIENT) 18.3 SEC (9.7-13.0)
[2021-04-11] MEDS: PANTOPRAZOLE SODIUM 80 MG in SODIUM CHLORIDE 100 ML IVPB SCH ×3 (02:45→22:44)
[2021-04-11 07:42] LABS: BASO % 0.7 % (0-2.0); EOS % 2.4 % (0-4.5); HEMATOCRIT 29.4 % (32.4-45.2); HEMOGLOBIN 8.8 GM/dL (10.7-15.3); MCH 21.6 pg (25.7-33.7); MCHC 29.9 g/dl (32.0-36.0); MEAN CELL VOLUME 72.3 fl (80-96); MEAN PLT VOLUME 8.4 fl (7.5-11.1); MONO % 9.3 % (3.8-10.2); NEUT % 76.6 % (42.8-82.8); PLATELET COUNT 212 10^3/uL (134-434); RBC 4.06 M/mm3 (3.60-5.2); RDW 18.9 % (11.6-15.6); WHITE BLOOD COUNT 8.8 K/mm3 (4.0-10.0)
[2021-04-11 08:03] LABS: CALCIUM 8.4 mg/dL (8.5-10.1)
[2021-04-11 08:04] LABS: BLOOD UREA NITROGEN 14.2 mg/dL (7-18)
[2021-04-11 08:05] LABS: ALBUMIN 2.8 g/dl (3.4-5.0)
[2021-04-11 08:08] LABS: BILIRUBIN,TOTAL 0.7 mg/dL (0.2-1); TOT PROT 5.4 g/dl (6.4-8.2)
[2021-04-11] MEDS ORDERED: PT OWN MED DRAWER 7, Y5N ONE ×2 (09:19→21:11)
[2021-04-11] MEDS: CARVEDILOL 12.5 MG TABLET (FP) PO SCH ×2 (09:36→21:19)
[2021-04-11] MEDS: SACUBITRIL/VALSARTAN 24 MG-26 MG TABLET PO SCH ×2 (09:36→21:19)
[2021-04-11] MEDS: SPIRONOLACTONE 25 MG TABLET PO SCH (09:36)
[2021-04-11 10:46] LABS: ANISOCYTOSIS 1+; MACROCYTOSIS 0; PLATELET ESTIMATE NORMAL; TEAR DROP CELLS 1+
[2021-04-11] MEDS: INSULIN SLIDING SCALE (NOVOLOG) 1 VIAL SQ SCH ×3 (11:41→21:19)
[2021-04-11] MEDS ORDERED: ACETAMINOPHEN 325 MG TABLET (FP) PO PRN (16:33)
[2021-04-11] MEDS ORDERED: diphenhydrAMINE HCL 25 MG CAPSULE (FP) PO ONE (23:15)
[2021-04-12] MEDS: INSULIN SLIDING SCALE (NOVOLOG) 1 VIAL SQ SCH ×4 (06:11→21:02)
[2021-04-12] MEDS ORDERED: PT OWN MED DRAWER 7, Y5N ONE ×3 (08:50→20:13)
[2021-04-12] MEDS: PANTOPRAZOLE SODIUM 80 MG in SODIUM CHLORIDE 100 ML IVPB SCH ×2 (09:19→20:58)
[2021-04-12] MEDS: SACUBITRIL/VALSARTAN 24 MG-26 MG TABLET PO SCH ×2 (09:24→20:59)
[2021-04-12] MEDS: CARVEDILOL 12.5 MG TABLET (FP) PO SCH ×2 (09:24→20:59)
[2021-04-12] MEDS: SPIRONOLACTONE 25 MG TABLET PO SCH (09:24)
[2021-04-12 12:09] LABS: HEMATOCRIT 29.3 % (32.4-45.2); MCH 22.2 pg (25.7-33.7); MCHC 30.7 g/dl (32.0-36.0); MEAN CELL VOLUME 72.2 fl (80-96); MEAN PLT VOLUME 8.2 fl (7.5-11.1); PLATELET COUNT 204 10^3/uL (134-434); RBC 4.06 M/mm3 (3.60-5.2); RDW 19.5 % (11.6-15.6); WHITE BLOOD COUNT 6.8 K/mm3 (4.0-10.0)
[2021-04-12 12:29] LABS: ALBUMIN 2.6 g/dl (3.4-5.0); CALCIUM 8.1 mg/dL (8.5-10.1)
[2021-04-12 12:34] LABS: BILIRUBIN,TOTAL 0.7 mg/dL (0.2-1); TOT PROT 5.3 g/dl (6.4-8.2)
[2021-04-13] MEDS: PANTOPRAZOLE SODIUM 80 MG in SODIUM CHLORIDE 100 ML IVPB SCH ×3 (04:10→17:59)
[2021-04-13] MEDS: INSULIN SLIDING SCALE (NOVOLOG) 1 VIAL SQ SCH ×4 (06:23→22:19)
[2021-04-13 10:25] LABS: BASO % 0.9 % (0-2.0); EOS % 3.7 % (0-4.5); HEMATOCRIT 30.7 % (32.4-45.2); HEMOGLOBIN 9.4 GM/dL (10.7-15.3); MCH 22.5 pg (25.7-33.7); MCHC 30.8 g/dl (32.0-36.0); MEAN CELL VOLUME 73.1 fl (80-96); MEAN PLT VOLUME 8.1 fl (7.5-11.1); MONO % 7.9 % (3.8-10.2); NEUT % 71.5 % (42.8-82.8); PLATELET COUNT 209 10^3/uL (134-434); RDW 20.3 % (11.6-15.6); WHITE BLOOD COUNT 7.9 K/mm3 (4.0-10.0)
[2021-04-13 10:48] LABS: ALBUMIN 2.9 g/dl (3.4-5.0); BLOOD UREA NITROGEN 11.3 mg/dL (7-18); CALCIUM 8.8 mg/dL (8.5-10.1)
[2021-04-13 10:51] LABS: CREATININE 0.9 mg/dL (0.55-1.3)
[2021-04-13 10:52] LABS: BILIRUBIN,TOTAL 0.7 mg/dL (0.2-1)
[2021-04-13 10:53] LABS: TOT PROT 5.8 g/dl (6.4-8.2)
[2021-04-13] MEDS ORDERED: PT OWN MED DRAWER 7, Y5N ONE ×2 (10:57→21:56)
[2021-04-13] MEDS: SACUBITRIL/VALSARTAN 24 MG-26 MG TABLET PO SCH ×2 (10:59→22:19)
[2021-04-13] MEDS: SPIRONOLACTONE 25 MG TABLET PO SCH (10:59)
[2021-04-13] MEDS: CARVEDILOL 12.5 MG TABLET (FP) PO SCH ×2 (11:00→22:19)
[2021-04-13] MEDS ORDERED: diphenhydrAMINE HCL 25 MG CAPSULE (FP) PO ONE (21:14)
[2021-04-14] MEDS: PANTOPRAZOLE SODIUM 80 MG in SODIUM CHLORIDE 100 ML IVPB SCH ×2 (01:45→01:46)
[2021-04-14] MEDS ORDERED: PANTOPRAZOLE SODIUM 80 MG in SODIUM CHLORIDE 100 ML IVPB SCH (04:13)
[2021-04-14] MEDS: INSULIN SLIDING SCALE (NOVOLOG) 1 VIAL SQ SCH ×4 (06:40→22:08)
[2021-04-14] MEDS: CARVEDILOL 12.5 MG TABLET (FP) PO SCH ×2 (09:47→22:08)
[2021-04-14] MEDS: PANTOPRAZOLE 40 MG TABLET PO SCH ×2 (09:47→22:08)
[2021-04-14] MEDS: SPIRONOLACTONE 25 MG TABLET PO SCH (09:47)
[2021-04-14] MEDS ORDERED: PT OWN MED DRAWER 7, Y5N ONE ×2 (09:49→21:25)
[2021-04-14] MEDS: SACUBITRIL/VALSARTAN 24 MG-26 MG TABLET PO SCH ×2 (09:49→22:08)
[2021-04-14] MEDS: FUROSEMIDE 40 MG/4 ML INJECTABLE VIAL IVPUSH SCH (14:23)
[2021-04-14 22:02] VITALS: BMI 46.8
[2021-04-14] MEDS: diphenhydrAMINE HCL 25 MG CAPSULE (FP) PO PRN (22:08)
[2021-04-15] MEDS ORDERED: HALOPERIDOL LACTATE 5 MG/ML IM ONE (04:35)
[2021-04-15] MEDS: INSULIN SLIDING SCALE (NOVOLOG) 1 VIAL SQ SCH ×4 (06:41→22:05)
[2021-04-15] MEDS: FUROSEMIDE 40 MG/4 ML INJECTABLE VIAL IVPUSH SCH ×3 (06:42→14:07)
[2021-04-15] MEDS: MULTIVITAMINS (DAILY MVI) TABLET (FP) PO SCH (10:49)
[2021-04-15] MEDS: SPIRONOLACTONE 25 MG TABLET PO SCH (10:49)
[2021-04-15] MEDS: ASPIRIN 81 MG CHEWABLE TABLETS PO SCH (10:49)
[2021-04-15] MEDS: SACUBITRIL/VALSARTAN 24 MG-26 MG TABLET PO SCH ×2 (10:49→21:57)
[2021-04-15] MEDS: CARVEDILOL 12.5 MG TABLET (FP) PO SCH ×2 (10:49→21:57)
[2021-04-15] MEDS: PANTOPRAZOLE 40 MG TABLET PO SCH ×2 (10:49→21:57)
[2021-04-15] MEDS ORDERED: ALBUTEROL SO4 2.5/IPRATROPIUM 0.5 INH SOL 3 ML VIAL.NEB. NEB PRN (10:55)
[2021-04-15 11:13] LABS: BASO % 0.9 % (0-2.0); EOS % 1.3 % (0-4.5); HEMATOCRIT 30.3 % (32.4-45.2); HEMOGLOBIN 9.2 GM/dL (10.7-15.3); LYMPH % 12.5 % (8-40); MCH 22.1 pg (25.7-33.7); MCHC 30.4 g/dl (32.0-36.0); MEAN CELL VOLUME 72.9 fl (80-96); MEAN PLT VOLUME 8.3 fl (7.5-11.1); MONO % 7.2 % (3.8-10.2); NEUT % 78.1 % (42.8-82.8); PLATELET COUNT 198 10^3/uL (134-434); RBC 4.16 M/mm3 (3.60-5.2); RDW 21.4 % (11.6-15.6); WHITE BLOOD COUNT 7.9 K/mm3 (4.0-10.0)
[2021-04-15 11:19] LABS: ARTERIAL BLD GAS O2 SATURATION 97.4 mmHg (95-98); ARTERIAL BLOOD GAS BASE EXCESS 6.6 mmol/L (-2-2); ARTERIAL BLOOD GAS PO2 101.9 mmHg (80-100); ARTERIAL BLOOD GAS pH 7.372 (7.350-7.450)
[2021-04-15 11:24] LABS: ALLENS TEST POSITIVE
[2021-04-15] MEDS: ALBUTEROL SO4 2.5/IPRATROPIUM 0.5 INH SOL 3 ML VIAL.NEB. NEB SCH ×3 (11:30→20:09)
[2021-04-15 11:46] LABS: ALBUMIN 3.1 g/dl (3.4-5.0); CALCIUM 8.7 mg/dL (8.5-10.1)
[2021-04-15 11:49] LABS: CREATININE 0.9 mg/dL (0.55-1.3)
[2021-04-15 11:51] LABS: BILIRUBIN,TOTAL 0.7 mg/dL (0.2-1); TOT PROT 5.8 g/dl (6.4-8.2)
[2021-04-15 12:30] LABS: ANISOCYTOSIS 2+; MACROCYTOSIS 0; PLATELET ESTIMATE NORMAL
[2021-04-15] MEDS ORDERED: PT OWN MED DRAWER 7, Y5N ONE (20:19)
[2021-04-15] MEDS: MELATONIN 1 MG TABLET PO SCH (21:57)
[2021-04-15] MEDS: diphenhydrAMINE HCL 25 MG CAPSULE (FP) PO PRN (21:58)
[2021-04-16] MEDS: FUROSEMIDE 20 MG TABLET (FP) PO SCH ×2 (06:20→15:17)
[2021-04-16] MEDS: INSULIN SLIDING SCALE (NOVOLOG) 1 VIAL SQ SCH ×4 (06:23→21:53)
[2021-04-16] MEDS: ALBUTEROL SO4 2.5/IPRATROPIUM 0.5 INH SOL 3 ML VIAL.NEB. NEB SCH ×4 (07:27→20:15)
[2021-04-16] MEDS ORDERED: PT OWN MED DRAWER 7, Y5N ONE (09:13)
[2021-04-16] MEDS: ASPIRIN 81 MG CHEWABLE TABLETS PO SCH (10:17)
[2021-04-16] MEDS: CARVEDILOL 12.5 MG TABLET (FP) PO SCH ×2 (10:17→21:51)
[2021-04-16] MEDS: MULTIVITAMINS (DAILY MVI) TABLET (FP) PO SCH (10:17)
[2021-04-16] MEDS: SPIRONOLACTONE 25 MG TABLET PO SCH (10:17)
[2021-04-16] MEDS: PANTOPRAZOLE 40 MG TABLET PO SCH ×2 (10:17→21:51)
[2021-04-16] MEDS: SACUBITRIL/VALSARTAN 24 MG-26 MG TABLET PO SCH ×2 (10:17→21:52)
[2021-04-16] MEDS: MELATONIN 1 MG TABLET PO SCH (21:51)
[2021-04-17] MEDS: FUROSEMIDE 20 MG TABLET (FP) PO SCH (06:11)
[2021-04-17] MEDS: INSULIN SLIDING SCALE (NOVOLOG) 1 VIAL SQ SCH (06:11)
[2021-04-17 06:19] VITALS: BP 111/67; PULSE 77; TEMP 97.5
[2021-04-17] MEDS: ALBUTEROL SO4 2.5/IPRATROPIUM 0.5 INH SOL 3 ML VIAL.NEB. NEB SCH (07:45)
== END 2021-04-17 09:29 | disposition home health service (06) | DRG 292 ==
LOC: JER 10:09 → JERBED 11:49 → J4W 20:20
PROVIDERS: ADMIT Family Medicine; ATTEND Family Medicine
PROC: 30233N1 Transfusion of Nonautologous Red Blood Cells into Peripheral Vein, Percutaneous Approach (ICD-10-PCS; principal; 2021-04-07)
DX: I11.0 Hypertensive heart disease with heart failure (principal); K92.2 Gastrointestinal hemorrhage, unspecified; I69.354 Hemiplegia and hemiparesis following cerebral infarction affecting left non-dominant side; I50.43 Acute on chronic combined systolic (congestive) and diastolic (congestive) heart failure; I25.10 Atherosclerotic heart disease of native coronary artery without angina pectoris; E78.5 Hyperlipidemia, unspecified; F41.9 Anxiety disorder, unspecified; E87.6 Hypokalemia; D50.0 Iron deficiency anemia secondary to blood loss (chronic); E66.9 Obesity, unspecified; Z68.37 Body mass index [BMI] 37.0-37.9, adult; I48.91 Unspecified atrial fibrillation; I73.9 Peripheral vascular disease, unspecified; G47.00 Insomnia, unspecified; J44.9 Chronic obstructive pulmonary disease, unspecified; Z95.5 Presence of coronary angioplasty implant and graft; I27.20 Pulmonary hypertension, unspecified; I25.2 Old myocardial infarction; E05.90 Thyrotoxicosis, unspecified without thyrotoxic crisis or storm; Z80.0 Family history of malignant neoplasm of digestive organs; Z95.2 Presence of prosthetic heart valve; Z95.1 Presence of aortocoronary bypass graft
CPT/HCPCS: 36415; 36430; 36600; 70450-TC; 71045-TC-FY; 76641-TC-LT; 80048; 80053; 82272; 82550; 82728; 82746; 82784; 82803; 82962; 83516; 83540; 83550; 83735; 83880; 84100; 84252; 84443; 84484; 85025; 85027; 85045; 85610; 85730; 86140; 86850; 86900; 86901; 86922; 93005; 93010; 94640; 94761; 97116-GP; 97162-GP; 99285-25; C9803; J1756; P9058; U0003; U0005

== ENCOUNTER 2021-06-03 15:46 | Inpatient (IN) | payer OTHER ==
[2021-06-03 15:58] VITALS: BMI 40.8
[2021-06-03] MEDS ORDERED: ALBUTEROL SO4 2.5/IPRATROPIUM 0.5 INH SOL 3 ML VIAL.NEB. NEB ONE ×2 (18:36→20:16)
[2021-06-03] MEDS ORDERED: PIPERACILLIN/TAZOB 4.5 GM 4.5 GM in DEXTROSE 5%-WATER 100 ML IVPB ONE (18:40)
[2021-06-03 19:05] LABS: ALBUMIN 3.3 g/dl (3.4-5.0); BLOOD UREA NITROGEN 18.2 mg/dL (7-18); CALCIUM 8.8 mg/dL (8.5-10.1)
[2021-06-03 19:09] LABS: CREATININE 1.2 mg/dL (0.55-1.3)
[2021-06-03 19:10] LABS: BILIRUBIN,TOTAL 0.8 mg/dL (0.2-1); TOT PROT 6.4 g/dl (6.4-8.2)
[2021-06-03 19:14] LABS: N-TERMINAL BNP 12252.4 pg/ml (5-125)
[2021-06-03] MEDS ORDERED: FUROSEMIDE 40 MG/4 ML INJECTABLE VIAL IVPUSH ONE (19:15)
[2021-06-03] MEDS ORDERED: ASPIRIN 81 MG CHEWABLE TABLETS PO ONE (19:15)
[2021-06-03] MEDS ORDERED: PIPERACILLIN/TAZOB 4.5 GM 4.5 GM/100 ML BAG IVPB ONE (20:16)
[2021-06-03] MEDS ORDERED: ASPIRIN 81 MG CHEWABLE TABLETS ONE (20:16)
[2021-06-03] MEDS ORDERED: FUROSEMIDE 40 MG/4 ML INJECTABLE VIAL ONE (20:17)
[2021-06-03 20:47] LABS: BASO % 1.2 % (0-2.0); EOS % 1.9 % (0-4.5); HEMATOCRIT 26.2 % (32.4-45.2); LYMPH % 18.4 % (8-40); MCH 23.4 pg (25.7-33.7); MCHC 30.4 g/dl (32.0-36.0); MEAN CELL VOLUME 76.9 fl (80-96); MEAN PLT VOLUME 8.7 fl (7.5-11.1); MONO % 8.5 % (3.8-10.2); PLATELET COUNT 214 10^3/uL (134-434); RDW 20.4 % (11.6-15.6); WHITE BLOOD COUNT 8.8 K/mm3 (4.0-10.0)
[2021-06-03 22:44] LABS: EPI CELLS 17 /uL (0-25.1); HYALINE CASTS 1 /uL (0-3.1); URINE APPEARANCE CLEAR; URINE BACTERIA 70 /uL (0-1359); URINE BILIRUBIN NEGATIVE (NEGATIVE); URINE COLOR YELLOW; URINE GLUCOSE (UA) NEGATIVE (NEGATIVE); URINE KETONE NEGATIVE (NEGATIVE); URINE LEUK ESTERASE NEGATIVE (NEGATIVE); URINE NITRITE NEGATIVE (NEGATIVE); URINE PROTEIN NEGATIVE (NEGATIVE); URINE RBC 45 /uL (0-23.9); URINE WBC 12 /uL (0-25.8)
[2021-06-04] MEDS ORDERED: PIPERACILLIN/TAZOB 4.5 GM 4.5 GM/100 ML BAG IVPB ONE ×2 (01:05→09:31)
[2021-06-04] MEDS: PIPERACILLIN/TAZOB 4.5 GM 4.5 GM in DEXTROSE 5%-WATER 100 ML IVPB SCH ×2 (03:08→09:59)
[2021-06-04 07:55] LABS: BASO % 0.8 % (0-2.0); EOS % 2.9 % (0-4.5); HEMATOCRIT 26.2 % (32.4-45.2); LYMPH % 17.6 % (8-40); MCH 23.3 pg (25.7-33.7); MCHC 30.4 g/dl (32.0-36.0); MEAN CELL VOLUME 76.7 fl (80-96); MEAN PLT VOLUME 8.7 fl (7.5-11.1); MONO % 8.4 % (3.8-10.2); NEUT % 70.3 % (42.8-82.8); PLATELET COUNT 215 10^3/uL (134-434); RBC 3.42 M/mm3 (3.60-5.2); RDW 20.5 % (11.6-15.6)
[2021-06-04] MEDS: FUROSEMIDE 20 MG TABLET (FP) PO SCH ×2 (08:00→15:52)
[2021-06-04] MEDS ORDERED: FUROSEMIDE 40 MG/4 ML INJECTABLE VIAL ONE (08:04)
[2021-06-04 08:19] LABS: BLOOD UREA NITROGEN 17.3 mg/dL (7-18); CALCIUM 8.4 mg/dL (8.5-10.1); MAGNESIUM 1.7 mg/dL (1.8-2.4)
[2021-06-04 08:22] LABS: CREATININE 1.2 mg/dL (0.55-1.3)
[2021-06-04 08:52] LABS: ANISOCYTOSIS 2+; MACROCYTOSIS 1+; OVALOCYTE 1+; PLATELET ESTIMATE NORMAL
[2021-06-04] MEDS ORDERED: ALBUTEROL SO4 2.5/IPRATROPIUM 0.5 INH SOL 3 ML VIAL.NEB. NEB ONE (09:28)
[2021-06-04] MEDS ORDERED: ASPIRIN 81 MG CHEWABLE TABLETS ONE (09:29)
[2021-06-04] MEDS ORDERED: CARVEDILOL 12.5 MG TABLET (FP) ONE (09:29)
[2021-06-04] MEDS ORDERED: MULTIVITAMINS (DAILY MVI) TABLET (FP) ONE (09:29)
[2021-06-04] MEDS ORDERED: ACETAMINOPHEN 325 MG TABLET (FP) ONE (09:29)
[2021-06-04] MEDS ORDERED: CLOPIDOGREL BISULFATE 75 MG TABLET (FP) ONE (09:30)
[2021-06-04] MEDS ORDERED: PANTOPRAZOLE 20 MG TABLET PO ONE (09:30)
[2021-06-04] MEDS ORDERED: SPIRONOLACTONE 25 MG TABLET ONE (09:30)
[2021-06-04] MEDS: CLOPIDOGREL BISULFATE 75 MG TABLET (FP) PO SCH (09:40)
[2021-06-04] MEDS: ASPIRIN 81 MG CHEWABLE TABLETS PO SCH (09:40)
[2021-06-04] MEDS: PANTOPRAZOLE 40 MG TABLET PO SCH ×2 (09:40→21:21)
[2021-06-04] MEDS: ALBUTEROL SO4 2.5/IPRATROPIUM 0.5 INH SOL 3 ML VIAL.NEB. NEB PRN (09:40)
[2021-06-04] MEDS: SPIRONOLACTONE 25 MG TABLET PO SCH (09:40)
[2021-06-04] MEDS: MULTIVITAMINS (DAILY MVI) TABLET (FP) PO SCH (09:40)
[2021-06-04] MEDS: CARVEDILOL 12.5 MG TABLET (FP) PO SCH ×2 (09:40→21:21)
[2021-06-04] MEDS: ACETAMINOPHEN 325 MG TABLET (FP) PO PRN (09:41)
[2021-06-04] MEDS: SACUBITRIL/VALSARTAN 24 MG-26 MG TABLET PO SCH ×2 (09:59→21:22)
[2021-06-04 17:31] LABS: IRON SERUM 16 ug/dL (50-175); TOTAL IRON BINDING CAPACITY 373 ug/dL (250-450)
[2021-06-04] MEDS ORDERED: PT OWN MED DRAWER 7, Y5N ONE (20:42)
[2021-06-05] MEDS: FUROSEMIDE 20 MG TABLET (FP) PO SCH ×2 (06:37→15:14)
[2021-06-05] MEDS: SPIRONOLACTONE 25 MG TABLET PO SCH (11:16)
[2021-06-05] MEDS: MULTIVITAMINS (DAILY MVI) TABLET (FP) PO SCH (11:17)
[2021-06-05] MEDS: PANTOPRAZOLE 40 MG TABLET PO SCH ×2 (11:17→21:23)
[2021-06-05] MEDS: ASPIRIN 81 MG CHEWABLE TABLETS PO SCH (11:17)
[2021-06-05] MEDS: CLOPIDOGREL BISULFATE 75 MG TABLET (FP) PO SCH (11:17)
[2021-06-05] MEDS: CARVEDILOL 12.5 MG TABLET (FP) PO SCH ×2 (11:18→21:24)
[2021-06-05] MEDS ORDERED: PT OWN MED DRAWER 7, Y5N ONE (11:23)
[2021-06-05] MEDS: SACUBITRIL/VALSARTAN 24 MG-26 MG TABLET PO SCH ×2 (11:25→21:23)
[2021-06-05] MEDS: ALBUTEROL SO4 2.5/IPRATROPIUM 0.5 INH SOL 3 ML VIAL.NEB. NEB PRN ×2 (11:53→20:07)
[2021-06-05 13:19] LABS: BASO % 0.5 % (0-2.0); EOS % 2.1 % (0-4.5); HEMATOCRIT 26.7 % (32.4-45.2); HEMOGLOBIN 8.2 GM/dL (10.7-15.3); LYMPH % 17.4 % (8-40); MCH 23.5 pg (25.7-33.7); MCHC 30.8 g/dl (32.0-36.0); MEAN CELL VOLUME 76.6 fl (80-96); MEAN PLT VOLUME 8.7 fl (7.5-11.1); MONO % 6.5 % (3.8-10.2); NEUT % 73.5 % (42.8-82.8); PLATELET COUNT 228 10^3/uL (134-434); RBC 3.49 M/mm3 (3.60-5.2); WHITE BLOOD COUNT 8.9 K/mm3 (4.0-10.0)
[2021-06-05 13:34] LABS: ALBUMIN 3.1 g/dl (3.4-5.0); CALCIUM 8.9 mg/dL (8.5-10.1)
[2021-06-05 13:35] LABS: BLOOD UREA NITROGEN 16.2 mg/dL (7-18)
[2021-06-05] MEDS ORDERED: ONDANSETRON 4 MG TABLET PO PRN (13:37)
[2021-06-05 13:38] LABS: CREATININE 1.2 mg/dL (0.55-1.3)
[2021-06-05] MEDS ORDERED: BISACODYL 10 MG SUPP.RECT PR ONE (13:38)
[2021-06-05] MEDS ORDERED: MAGNESIUM HYDROX 2400MG/30ML ORAL SUSPENSION 30 ML CUP PO ONE (13:38)
[2021-06-05 13:39] LABS: BILIRUBIN,TOTAL 0.7 mg/dL (0.2-1); TOT PROT 6.5 g/dl (6.4-8.2)
[2021-06-05] MEDS ORDERED: POTASSIUM CHLORIDE TABS 20 MEQ TABLET.ER (FP) PO ONE (14:15)
[2021-06-05] MEDS ORDERED: FUROSEMIDE 40 MG TABLET (FP) PO SCH (15:30)
[2021-06-05] MEDS ORDERED: SPIRONOLACTONE 25 MG TABLET PO ONE (16:10)
[2021-06-05] MEDS: PIPERACILLIN/TAZOB 4.5 GM 4.5 GM in DEXTROSE 5%-WATER 100 ML IVPB SCH ×2 (19:30→19:31)
[2021-06-06] MEDS: FUROSEMIDE 40 MG/4 ML INJECTABLE VIAL IVPUSH SCH ×2 (06:09→14:20)
[2021-06-06 07:23] LABS: HEMATOCRIT 26.2 % (32.4-45.2); MCH 23.3 pg (25.7-33.7); MCHC 30.4 g/dl (32.0-36.0); MEAN CELL VOLUME 76.7 fl (80-96); MEAN PLT VOLUME 8.5 fl (7.5-11.1); PLATELET COUNT 202 10^3/uL (134-434); RBC 3.41 M/mm3 (3.60-5.2); RDW 20.3 % (11.6-15.6); WHITE BLOOD COUNT 7.1 K/mm3 (4.0-10.0)
[2021-06-06 07:44] LABS: CALCIUM 8.5 mg/dL (8.5-10.1)
[2021-06-06 07:47] LABS: CREATININE 1.2 mg/dL (0.55-1.3)
[2021-06-06 07:49] LABS: BILIRUBIN,TOTAL 0.5 mg/dL (0.2-1)
[2021-06-06] MEDS ORDERED: PT OWN MED DRAWER 7, Y5N ONE ×2 (09:22→21:07)
[2021-06-06] MEDS: POTASSIUM CHLORIDE TABS 20 MEQ TABLET.ER (FP) PO SCH (10:03)
[2021-06-06] MEDS: ASPIRIN 81 MG CHEWABLE TABLETS PO SCH (10:03)
[2021-06-06] MEDS: PANTOPRAZOLE 40 MG TABLET PO SCH ×2 (10:03→21:36)
[2021-06-06] MEDS: SACUBITRIL/VALSARTAN 24 MG-26 MG TABLET PO SCH ×2 (10:04→21:36)
[2021-06-06] MEDS: POLYETHYLENE GLYCOL (HEALTHYLAX) 3350 17 GM PACKET PO SCH (10:04)
[2021-06-06] MEDS: CLOPIDOGREL BISULFATE 75 MG TABLET (FP) PO SCH (10:05)
[2021-06-06] MEDS: CARVEDILOL 12.5 MG TABLET (FP) PO SCH ×2 (10:05→21:36)
[2021-06-06] MEDS: MULTIVITAMINS (DAILY MVI) TABLET (FP) PO SCH (10:05)
[2021-06-06] MEDS: SPIRONOLACTONE 25 MG TABLET PO SCH (10:55)
[2021-06-06] MEDS: ALBUTEROL SO4 2.5/IPRATROPIUM 0.5 INH SOL 3 ML VIAL.NEB. NEB PRN (20:17)
[2021-06-07] MEDS: FUROSEMIDE 40 MG/4 ML INJECTABLE VIAL IVPUSH SCH ×2 (05:51→15:03)
[2021-06-07 07:23] LABS: ARTERIAL BLD GAS O2 SATURATION 90.3 % (95-98); ARTERIAL BLOOD GAS BASE EXCESS 18.7 mmol/L (-2-2); ARTERIAL BLOOD GAS pH 7.393 (7.350-7.450)
[2021-06-07 07:25] LABS: ALLENS TEST POSITIVE
[2021-06-07] MEDS: ALBUTEROL SO4 2.5/IPRATROPIUM 0.5 INH SOL 3 ML VIAL.NEB. NEB PRN (07:50)
[2021-06-07] MEDS ORDERED: PT OWN MED DRAWER 7, Y5N ONE (08:08)
[2021-06-07 08:15] LABS: BASO % 0.7 % (0-2.0); EOS % 2.4 % (0-4.5); HEMATOCRIT 26.4 % (32.4-45.2); MCH 23.4 pg (25.7-33.7); MCHC 30.4 g/dl (32.0-36.0); MEAN CELL VOLUME 76.9 fl (80-96); MONO % 8.6 % (3.8-10.2); NEUT % 71.3 % (42.8-82.8); PLATELET COUNT 196 10^3/uL (134-434); RBC 3.44 M/mm3 (3.60-5.2); RDW 20.1 % (11.6-15.6); WHITE BLOOD COUNT 9.7 K/mm3 (4.0-10.0)
[2021-06-07 08:37] LABS: CALCIUM 8.7 mg/dL (8.5-10.1)
[2021-06-07 08:38] LABS: BLOOD UREA NITROGEN 18.7 mg/dL (7-18); MAGNESIUM 2.1 mg/dL (1.8-2.4)
[2021-06-07 08:39] LABS: BILIRUBIN,TOTAL 0.5 mg/dL (0.2-1)
[2021-06-07 08:40] LABS: CREATININE 1.3 mg/dL (0.55-1.3)
[2021-06-07] MEDS: SPIRONOLACTONE 25 MG TABLET PO SCH (09:32)
[2021-06-07] MEDS: CLOPIDOGREL BISULFATE 75 MG TABLET (FP) PO SCH (09:32)
[2021-06-07] MEDS: MULTIVITAMINS (DAILY MVI) TABLET (FP) PO SCH (09:32)
[2021-06-07] MEDS: POTASSIUM CHLORIDE TABS 20 MEQ TABLET.ER (FP) PO SCH (09:33)
[2021-06-07] MEDS: CARVEDILOL 12.5 MG TABLET (FP) PO SCH ×2 (09:33→21:11)
[2021-06-07] MEDS: ASPIRIN 81 MG CHEWABLE TABLETS PO SCH (09:33)
[2021-06-07] MEDS: PANTOPRAZOLE 40 MG TABLET PO SCH ×2 (09:33→21:11)
[2021-06-07] MEDS: SACUBITRIL/VALSARTAN 24 MG-26 MG TABLET PO SCH ×2 (09:33→21:11)
[2021-06-07] MEDS: POLYETHYLENE GLYCOL (HEALTHYLAX) 3350 17 GM PACKET PO SCH (09:33)
[2021-06-07] MEDS ORDERED: IRON SUCROSE INJECTION 200 MG in SODIUM CHLORIDE 90 ML IVPB ONE (10:42)
[2021-06-07] MEDS: ALBUTEROL SO4 2.5/IPRATROPIUM 0.5 INH SOL 3 ML VIAL.NEB. NEB SCH ×3 (11:12→20:05)
[2021-06-08] MEDS: FUROSEMIDE 40 MG/4 ML INJECTABLE VIAL IVPUSH SCH (06:51)
[2021-06-08 08:21] LABS: HEMATOCRIT 25.9 % (32.4-45.2); HEMOGLOBIN 7.8 GM/dL (10.7-15.3); MCH 23.4 pg (25.7-33.7); MCHC 30.3 g/dl (32.0-36.0); MEAN CELL VOLUME 77.2 fl (80-96); MEAN PLT VOLUME 8.7 fl (7.5-11.1); PLATELET COUNT 209 10^3/uL (134-434); RBC 3.36 M/mm3 (3.60-5.2); RDW 20.2 % (11.6-15.6); WHITE BLOOD COUNT 7.9 K/mm3 (4.0-10.0)
[2021-06-08] MEDS: ALBUTEROL SO4 2.5/IPRATROPIUM 0.5 INH SOL 3 ML VIAL.NEB. NEB SCH ×4 (08:33→20:10)
[2021-06-08 08:42] LABS: BLOOD UREA NITROGEN 19.8 mg/dL (7-18)
[2021-06-08 08:43] LABS: CALCIUM 8.8 mg/dL (8.5-10.1); MAGNESIUM 2.1 mg/dL (1.8-2.4)
[2021-06-08 08:46] LABS: CREATININE 1.5 mg/dL (0.55-1.3)
[2021-06-08 08:47] LABS: BILIRUBIN,TOTAL 0.5 mg/dL (0.2-1); TOT PROT 6.1 g/dl (6.4-8.2)
[2021-06-08] MEDS ORDERED: PT OWN MED DRAWER 7, Y5N ONE (09:42)
[2021-06-08] MEDS: PANTOPRAZOLE 40 MG TABLET PO SCH ×2 (09:48→21:33)
[2021-06-08] MEDS: SPIRONOLACTONE 25 MG TABLET PO SCH (09:48)
[2021-06-08] MEDS: CARVEDILOL 12.5 MG TABLET (FP) PO SCH ×2 (09:48→21:33)
[2021-06-08] MEDS: POLYETHYLENE GLYCOL (HEALTHYLAX) 3350 17 GM PACKET PO SCH (09:48)
[2021-06-08] MEDS: MULTIVITAMINS (DAILY MVI) TABLET (FP) PO SCH (09:48)
[2021-06-08] MEDS: SACUBITRIL/VALSARTAN 24 MG-26 MG TABLET PO SCH ×2 (09:49→21:33)
[2021-06-08] MEDS: POTASSIUM CHLORIDE TABS 20 MEQ TABLET.ER (FP) PO SCH (09:49)
[2021-06-08] MEDS: CLOPIDOGREL BISULFATE 75 MG TABLET (FP) PO SCH (09:49)
[2021-06-08] MEDS: ASPIRIN 81 MG CHEWABLE TABLETS PO SCH (10:53)
[2021-06-08] MEDS: FUROSEMIDE 40 MG TABLET (FP) PO SCH (14:00)
[2021-06-08] MEDS: ACETAMINOPHEN 325 MG TABLET (FP) PO PRN (20:00)
[2021-06-09] MEDS: FUROSEMIDE 40 MG TABLET (FP) PO SCH ×2 (05:13→15:14)
[2021-06-09 08:56] LABS: BLOOD UREA NITROGEN 23.5 mg/dL (7-18)
[2021-06-09 08:59] LABS: CREATININE 1.3 mg/dL (0.55-1.3)
[2021-06-09] MEDS: ALBUTEROL SO4 2.5/IPRATROPIUM 0.5 INH SOL 3 ML VIAL.NEB. NEB SCH ×4 (09:05→20:10)
[2021-06-09] MEDS ORDERED: PT OWN MED DRAWER 7, Y5N ONE (09:39)
[2021-06-09] MEDS: CARVEDILOL 12.5 MG TABLET (FP) PO SCH ×2 (09:40→21:24)
[2021-06-09] MEDS: SPIRONOLACTONE 25 MG TABLET PO SCH (09:44)
[2021-06-09] MEDS: CLOPIDOGREL BISULFATE 75 MG TABLET (FP) PO SCH (09:44)
[2021-06-09] MEDS: MULTIVITAMINS (DAILY MVI) TABLET (FP) PO SCH (09:44)
[2021-06-09] MEDS: ASPIRIN 81 MG CHEWABLE TABLETS PO SCH (09:44)
[2021-06-09] MEDS: PANTOPRAZOLE 40 MG TABLET PO SCH ×2 (09:44→21:24)
[2021-06-09] MEDS: SACUBITRIL/VALSARTAN 24 MG-26 MG TABLET PO SCH ×2 (09:44→21:24)
[2021-06-09] MEDS: POTASSIUM CHLORIDE TABS 20 MEQ TABLET.ER (FP) PO SCH (09:45)
[2021-06-09] MEDS: POLYETHYLENE GLYCOL (HEALTHYLAX) 3350 17 GM PACKET PO SCH ×2 (09:45→09:53)
[2021-06-09] MEDS: FLUTICASONE/UMECLIDIN/VILANTER(100-62.5-25 TRELEGY ELLIPTA) INAHLER IH SCH (11:04)
[2021-06-09 13:59] LABS: PHOSPHOROUS 3.5 mg/dL (2.5-4.9)
[2021-06-09] MEDS ORDERED: IRON SUCROSE INJECTION 300 MG in SODIUM CHLORIDE 235 ML IVPB ONE (17:00)
[2021-06-10] MEDS: FUROSEMIDE 40 MG TABLET (FP) PO SCH ×2 (06:04→14:02)
[2021-06-10] MEDS: ALBUTEROL SO4 2.5/IPRATROPIUM 0.5 INH SOL 3 ML VIAL.NEB. NEB SCH ×4 (07:25→20:20)
[2021-06-10 08:01] LABS: BASO % 0.6 % (0-2.0); EOS % 2.5 % (0-4.5); HEMATOCRIT 23.8 % (32.4-45.2); HEMOGLOBIN 7.3 GM/dL (10.7-15.3); LYMPH % 17.1 % (8-40); MCH 23.6 pg (25.7-33.7); MCHC 30.8 g/dl (32.0-36.0); MEAN CELL VOLUME 76.6 fl (80-96); MEAN PLT VOLUME 8.8 fl (7.5-11.1); MONO % 8.8 % (3.8-10.2); PLATELET COUNT 230 10^3/uL (134-434); RBC 3.11 M/mm3 (3.60-5.2)
[2021-06-10 08:23] LABS: CALCIUM 9.1 mg/dL (8.5-10.1)
[2021-06-10 08:26] LABS: CREATININE 1.4 mg/dL (0.55-1.3)
[2021-06-10] MEDS ORDERED: FUROSEMIDE 40 MG/4 ML INJECTABLE VIAL IVPUSH ONE (08:26)
[2021-06-10 08:28] LABS: BILIRUBIN,TOTAL 0.6 mg/dL (0.2-1); TOT PROT 5.9 g/dl (6.4-8.2)
[2021-06-10] MEDS: POTASSIUM CHLORIDE TABS 20 MEQ TABLET.ER (FP) PO SCH (10:32)
[2021-06-10] MEDS: CARVEDILOL 12.5 MG TABLET (FP) PO SCH ×2 (10:32→21:28)
[2021-06-10] MEDS: POLYETHYLENE GLYCOL (HEALTHYLAX) 3350 17 GM PACKET PO SCH (10:32)
[2021-06-10] MEDS: SACUBITRIL/VALSARTAN 24 MG-26 MG TABLET PO SCH ×2 (10:32→21:29)
[2021-06-10] MEDS: MULTIVITAMINS (DAILY MVI) TABLET (FP) PO SCH (10:32)
[2021-06-10] MEDS: SPIRONOLACTONE 25 MG TABLET PO SCH (10:32)
[2021-06-10] MEDS: ASPIRIN 81 MG CHEWABLE TABLETS PO SCH (10:32)
[2021-06-10] MEDS: PANTOPRAZOLE 40 MG TABLET PO SCH ×2 (10:33→21:28)
[2021-06-10] MEDS: FLUTICASONE/UMECLIDIN/VILANTER(100-62.5-25 TRELEGY ELLIPTA) INAHLER IH SCH (10:33)
[2021-06-10] MEDS: CLOPIDOGREL BISULFATE 75 MG TABLET (FP) PO SCH (10:33)
[2021-06-11] MEDS: FUROSEMIDE 40 MG TABLET (FP) PO SCH ×2 (06:03→14:31)
[2021-06-11] MEDS: ALBUTEROL SO4 2.5/IPRATROPIUM 0.5 INH SOL 3 ML VIAL.NEB. NEB SCH ×4 (07:35→20:20)
[2021-06-11 08:23] LABS: BASO % 0.7 % (0-2.0); EOS % 2.4 % (0-4.5); HEMATOCRIT 24.4 % (32.4-45.2); HEMOGLOBIN 7.5 GM/dL (10.7-15.3); LYMPH % 19.6 % (8-40); MCH 23.8 pg (25.7-33.7); MCHC 30.7 g/dl (32.0-36.0); MEAN CELL VOLUME 77.6 fl (80-96); MEAN PLT VOLUME 8.7 fl (7.5-11.1); MONO % 9.6 % (3.8-10.2); NEUT % 67.7 % (42.8-82.8); PLATELET COUNT 224 10^3/uL (134-434); RBC 3.15 M/mm3 (3.60-5.2); RDW 20.8 % (11.6-15.6); WHITE BLOOD COUNT 7.8 K/mm3 (4.0-10.0)
[2021-06-11 08:27] LABS: BLOOD UREA NITROGEN 27.6 mg/dL (7-18); CALCIUM 9.3 mg/dL (8.5-10.1)
[2021-06-11 08:30] LABS: CREATININE 1.5 mg/dL (0.55-1.3)
[2021-06-11] MEDS ORDERED: PT OWN MED DRAWER 7, Y5N ONE (09:09)
[2021-06-11 09:19] LABS: ANISOCYTOSIS 2+; MACROCYTOSIS 0; PLATELET ESTIMATE NORMAL
[2021-06-11] MEDS: SPIRONOLACTONE 25 MG TABLET PO SCH (09:44)
[2021-06-11] MEDS: MULTIVITAMINS (DAILY MVI) TABLET (FP) PO SCH (09:44)
[2021-06-11] MEDS: SACUBITRIL/VALSARTAN 24 MG-26 MG TABLET PO SCH ×2 (09:44→21:54)
[2021-06-11] MEDS: POLYETHYLENE GLYCOL (HEALTHYLAX) 3350 17 GM PACKET PO SCH (09:44)
[2021-06-11] MEDS: CARVEDILOL 12.5 MG TABLET (FP) PO SCH ×2 (09:45→21:54)
[2021-06-11] MEDS: ASPIRIN 81 MG CHEWABLE TABLETS PO SCH (09:45)
[2021-06-11] MEDS: PANTOPRAZOLE 40 MG TABLET PO SCH ×2 (09:45→21:54)
[2021-06-11] MEDS: FLUTICASONE/UMECLIDIN/VILANTER(100-62.5-25 TRELEGY ELLIPTA) INAHLER IH SCH (09:45)
[2021-06-11] MEDS: CLOPIDOGREL BISULFATE 75 MG TABLET (FP) PO SCH (09:45)
[2021-06-11] MEDS: POTASSIUM CHLORIDE TABS 20 MEQ TABLET.ER (FP) PO SCH (09:45)
[2021-06-11] MEDS ORDERED: FUROSEMIDE 40 MG/4 ML INJECTABLE VIAL IVPUSH ONE ×2 (13:59→22:45)
[2021-06-12] MEDS: MELATONIN 1 MG TABLET PO SCH ×2 (01:26→21:22)
[2021-06-12] MEDS: FUROSEMIDE 40 MG TABLET (FP) PO SCH ×2 (05:29→13:22)
[2021-06-12 07:40] LABS: HEMATOCRIT 29.7 % (32.4-45.2); HEMOGLOBIN 9.5 GM/dL (10.7-15.3); MCH 25.4 pg (25.7-33.7); MCHC 31.9 g/dl (32.0-36.0); MEAN CELL VOLUME 79.7 fl (80-96); MEAN PLT VOLUME 8.9 fl (7.5-11.1); PLATELET COUNT 209 10^3/uL (134-434); RBC 3.73 M/mm3 (3.60-5.2); RDW 19.3 % (11.6-15.6); WHITE BLOOD COUNT 8.4 K/mm3 (4.0-10.0)
[2021-06-12] MEDS: ALBUTEROL SO4 2.5/IPRATROPIUM 0.5 INH SOL 3 ML VIAL.NEB. NEB SCH (07:46)
[2021-06-12 07:57] LABS: BLOOD UREA NITROGEN 25.3 mg/dL (7-18); CALCIUM 9.3 mg/dL (8.5-10.1)
[2021-06-12 08:01] LABS: CREATININE 1.4 mg/dL (0.55-1.3)
[2021-06-12 08:03] LABS: BILIRUBIN,TOTAL 1.2 mg/dL (0.2-1)
[2021-06-12] MEDS: SPIRONOLACTONE 25 MG TABLET PO SCH (10:22)
[2021-06-12] MEDS: CLOPIDOGREL BISULFATE 75 MG TABLET (FP) PO SCH (10:22)
[2021-06-12] MEDS: POTASSIUM CHLORIDE TABS 20 MEQ TABLET.ER (FP) PO SCH (10:22)
[2021-06-12] MEDS: ASPIRIN 81 MG CHEWABLE TABLETS PO SCH (10:22)
[2021-06-12] MEDS: MULTIVITAMINS (DAILY MVI) TABLET (FP) PO SCH (10:22)
[2021-06-12] MEDS: PANTOPRAZOLE 40 MG TABLET PO SCH ×2 (10:22→21:21)
[2021-06-12] MEDS: POLYETHYLENE GLYCOL (HEALTHYLAX) 3350 17 GM PACKET PO SCH ×2 (10:22→21:22)
[2021-06-12] MEDS: CARVEDILOL 12.5 MG TABLET (FP) PO SCH ×2 (10:22→21:21)
[2021-06-12] MEDS: SACUBITRIL/VALSARTAN 24 MG-26 MG TABLET PO SCH ×2 (10:22→21:21)
[2021-06-12] MEDS: FLUTICASONE/UMECLIDIN/VILANTER(100-62.5-25 TRELEGY ELLIPTA) INAHLER IH SCH (10:23)
[2021-06-12 10:31] LABS: PHOSPHOROUS 3.7 mg/dL (2.5-4.9)
[2021-06-13] MEDS: FUROSEMIDE 40 MG TABLET (FP) PO SCH ×2 (06:35→14:34)
[2021-06-13] MEDS: POLYETHYLENE GLYCOL (HEALTHYLAX) 3350 17 GM PACKET PO SCH ×3 (06:52→22:14)
[2021-06-13] MEDS: CLOPIDOGREL BISULFATE 75 MG TABLET (FP) PO SCH (10:45)
[2021-06-13] MEDS: CARVEDILOL 12.5 MG TABLET (FP) PO SCH ×2 (10:45→22:14)
[2021-06-13] MEDS: SACUBITRIL/VALSARTAN 24 MG-26 MG TABLET PO SCH ×2 (10:45→22:14)
[2021-06-13] MEDS: ASPIRIN 81 MG CHEWABLE TABLETS PO SCH (10:45)
[2021-06-13] MEDS: PANTOPRAZOLE 40 MG TABLET PO SCH ×2 (10:45→22:14)
[2021-06-13] MEDS: POTASSIUM CHLORIDE TABS 20 MEQ TABLET.ER (FP) PO SCH (10:45)
[2021-06-13] MEDS: MULTIVITAMINS (DAILY MVI) TABLET (FP) PO SCH (10:45)
[2021-06-13] MEDS: FLUTICASONE/UMECLIDIN/VILANTER(100-62.5-25 TRELEGY ELLIPTA) INAHLER IH SCH (10:46)
[2021-06-13] MEDS: SPIRONOLACTONE 25 MG TABLET PO SCH (10:51)
[2021-06-13 13:28] LABS: HEMATOCRIT 30.4 % (32.4-45.2); HEMOGLOBIN 9.6 GM/dL (10.7-15.3); MCH 25.6 pg (25.7-33.7); MCHC 31.6 g/dl (32.0-36.0); MEAN CELL VOLUME 80.8 fl (80-96); MEAN PLT VOLUME 8.9 fl (7.5-11.1); PLATELET COUNT 228 10^3/uL (134-434); RBC 3.76 M/mm3 (3.60-5.2); RDW 20.9 % (11.6-15.6); WHITE BLOOD COUNT 8.1 K/mm3 (4.0-10.0)
[2021-06-13 13:54] LABS: BLOOD UREA NITROGEN 25.9 mg/dL (7-18)
[2021-06-13 13:56] LABS: CREATININE 1.4 mg/dL (0.55-1.3)
[2021-06-13 14:03] LABS: N-TERMINAL BNP 13122.1 pg/ml (5-125)
[2021-06-13] MEDS: MELATONIN 1 MG TABLET PO SCH (23:00)
[2021-06-14] MEDS: POLYETHYLENE GLYCOL (HEALTHYLAX) 3350 17 GM PACKET PO SCH ×3 (06:51→22:17)
[2021-06-14] MEDS: FUROSEMIDE 40 MG TABLET (FP) PO SCH ×2 (06:56→14:41)
[2021-06-14] MEDS: POTASSIUM CHLORIDE TABS 20 MEQ TABLET.ER (FP) PO SCH (10:39)
[2021-06-14] MEDS: SPIRONOLACTONE 25 MG TABLET PO SCH (10:39)
[2021-06-14] MEDS: ASPIRIN 81 MG CHEWABLE TABLETS PO SCH (10:39)
[2021-06-14] MEDS: SACUBITRIL/VALSARTAN 24 MG-26 MG TABLET PO SCH ×2 (10:39→22:17)
[2021-06-14] MEDS: MULTIVITAMINS (DAILY MVI) TABLET (FP) PO SCH (10:39)
[2021-06-14] MEDS: CARVEDILOL 12.5 MG TABLET (FP) PO SCH ×2 (10:39→22:17)
[2021-06-14] MEDS: PANTOPRAZOLE 40 MG TABLET PO SCH ×2 (10:39→22:17)
[2021-06-14] MEDS: CLOPIDOGREL BISULFATE 75 MG TABLET (FP) PO SCH (10:39)
[2021-06-14] MEDS: FLUTICASONE/UMECLIDIN/VILANTER(100-62.5-25 TRELEGY ELLIPTA) INAHLER IH SCH (10:40)
[2021-06-14] MEDS ORDERED: FUROSEMIDE 40 MG/4 ML INJECTABLE VIAL IVPUSH ONE (15:52)
[2021-06-14] MEDS: MELATONIN 1 MG TABLET PO SCH (22:29)
[2021-06-15] MEDS: POLYETHYLENE GLYCOL (HEALTHYLAX) 3350 17 GM PACKET PO SCH ×3 (05:47→23:08)
[2021-06-15 07:37] LABS: MCH 25.1 pg (25.7-33.7); MCHC 31.2 g/dl (32.0-36.0); MEAN CELL VOLUME 80.4 fl (80-96); MEAN PLT VOLUME 8.8 fl (7.5-11.1); PLATELET COUNT 216 10^3/uL (134-434); RBC 3.97 M/mm3 (3.60-5.2); RDW 22.6 % (11.6-15.6)
[2021-06-15 07:56] LABS: BLOOD UREA NITROGEN 24.5 mg/dL (7-18); MAGNESIUM 2.1 mg/dL (1.8-2.4)
[2021-06-15 07:59] LABS: CREATININE 1.1 mg/dL (0.55-1.3)
[2021-06-15 08:06] LABS: N-TERMINAL BNP 10963.2 pg/ml (5-125)
[2021-06-15] MEDS ORDERED: FUROSEMIDE 40 MG/4 ML INJECTABLE VIAL IVPUSH ONE (08:15)
[2021-06-15] MEDS ORDERED: PT OWN MED DRAWER 7, Y5N ONE (08:49)
[2021-06-15] MEDS: CARVEDILOL 12.5 MG TABLET (FP) PO SCH ×2 (09:13→23:07)
[2021-06-15] MEDS: FUROSEMIDE 40 MG TABLET (FP) PO SCH (09:13)
[2021-06-15] MEDS: SACUBITRIL/VALSARTAN 24 MG-26 MG TABLET PO SCH ×2 (09:13→23:07)
[2021-06-15] MEDS: MULTIVITAMINS (DAILY MVI) TABLET (FP) PO SCH (09:14)
[2021-06-15] MEDS: CLOPIDOGREL BISULFATE 75 MG TABLET (FP) PO SCH (09:14)
[2021-06-15] MEDS: PANTOPRAZOLE 40 MG TABLET PO SCH ×2 (09:14→23:08)
[2021-06-15] MEDS: ASPIRIN 81 MG CHEWABLE TABLETS PO SCH (09:14)
[2021-06-15] MEDS: FLUTICASONE/UMECLIDIN/VILANTER(100-62.5-25 TRELEGY ELLIPTA) INAHLER IH SCH (09:14)
[2021-06-15] MEDS: POTASSIUM CHLORIDE TABS 20 MEQ TABLET.ER (FP) PO SCH (09:14)
[2021-06-15] MEDS: SPIRONOLACTONE 25 MG TABLET PO SCH (12:40)
[2021-06-15 18:38] VITALS: BP 130/91; PULSE 88; TEMP 97.7
[2021-06-15] MEDS: MELATONIN 1 MG TABLET PO SCH (23:08)
== END 2021-06-15 23:30 | DRG 291 ==
LOC: JER 15:46 → JERBED 20:05 → J4W 06-04 15:17 → J4S 06-08 18:57
PROVIDERS: ADMIT Internal Medicine; ATTEND Family Medicine
DX: I13.0 Hypertensive heart and chronic kidney disease with heart failure and stage 1 through stage 4 chronic kidney disease, or unspecified chronic kidney disease (principal); J18.9 Pneumonia, unspecified organism; I50.23 Acute on chronic systolic (congestive) heart failure; I69.354 Hemiplegia and hemiparesis following cerebral infarction affecting left non-dominant side; J44.1 Chronic obstructive pulmonary disease with (acute) exacerbation; I24.8 Other forms of acute ischemic heart disease; Z68.41 Body mass index [BMI] 40.0-44.9, adult; I25.10 Atherosclerotic heart disease of native coronary artery without angina pectoris; J44.9 Chronic obstructive pulmonary disease, unspecified; E11.9 Type 2 diabetes mellitus without complications; E66.01 Morbid (severe) obesity due to excess calories; I25.2 Old myocardial infarction; I27.20 Pulmonary hypertension, unspecified; D64.9 Anemia, unspecified; Z95.2 Presence of prosthetic heart valve; E87.6 Hypokalemia; F41.9 Anxiety disorder, unspecified; D50.9 Iron deficiency anemia, unspecified; E11.22 Type 2 diabetes mellitus with diabetic chronic kidney disease; N18.9 Chronic kidney disease, unspecified; I48.91 Unspecified atrial fibrillation; Z91.14 Patient's other noncompliance with medication regimen
CPT/HCPCS: 36415; 36430; 36600; 71045-TC-FY; 71250-TC; 80048; 80053; 80061; 81003; 82272; 82550; 82728; 82803; 82962; 83540; 83550; 83735; 83880; 84100; 84484; 85025; 85027; 86850; 86900; 86901; 86922; 87040; 87077; 87086; 87186; 87899; 93005; 93010; 94010; 94640; 94761; 97116-GP; 97161-GP; 99285-25; C9803; J1756; P9058; U0003; U0005